=== PATIENT | female | born 1990 | race Caucasian/White ===

== ENCOUNTER → 2018-03-12 19:08 | Outpatient (CLI) | payer OTHER, SELFPAY ==
[2018-03-15 14:29] LABS: HPV Reflexed? NOT INDICATED
== END ==
PROVIDERS: Visit Provider Obstetrics & Gynecology
DX: Z12.4 Encounter for screening for malignant neoplasm of cervix (principal)
CPT/HCPCS: 88175; G0145

== ENCOUNTER → 2018-03-13 12:06 | Outpatient (CLI) | payer OTHER, SELFPAY ==
[2018-03-13 13:35] LABS: Cholesterol 155 mg/dL (200); Creatinine, Serum 0.65 mg/dL (0.55-1.02); EST Glomerular Filtration Rate 117 mL/min (>60); Est Glom Filt Rate - Afr Amer 142 mL/min (>60); Glucose 88 mg/dL (74-106); High Density Lipoprotein 40 mg/dL; Thyroid Stim Hormone (TSH) 1.37 uIU/mL (0.358-3.74); Triglycerides 127 mg/dL; Very Low Density Lipoprotein 25 mg/dL (5-40)
[2018-03-13 14:02] LABS: Free T3 3.7 pg/mL (2.18-3.98); T4 Free Direct 1.18 ng/dL (0.76-1.46)
== END ==
PROVIDERS: Family Provider Family Medicine; PCP Family Medicine; Visit Provider Obstetrics & Gynecology
DX: Z00.00 Encounter for general adult medical examination without abnormal findings (principal); N93.9 Abnormal uterine and vaginal bleeding, unspecified; E01.0 Iodine-deficiency related diffuse (endemic) goiter
CPT/HCPCS: 36415; 80061; 82565; 82947; 84439; 84443; 84481

== ENCOUNTER → 2018-03-14 08:23 | Outpatient (CLI) | payer OTHER, SELFPAY ==
--- NOTE | 2018-03-14 08:26 | US_ITS ---
STUDY: THYROID ULTRASOUND REASON FOR EXAM: Female, 27 years old. Thyromegaly TECHNIQUE: Ultrasound evaluation of the thyroid was performed with real-time and static torres-scale imaging. COMPARISON: None. FINDINGS: RIGHT LOBE: The right lobe of the thyroid gland measures 5.9 x 2.0 x 1.7 cm. There is a homogeneous echotexture. There are 2 separate colloid cysts, both measure 3 x 3 x 2 mm. LEFT LOBE: The left lobe of the thyroid gland measures 5.4 x 1.7 x 1.4 cm. There is a homogeneous echotexture. There are no demonstrated solid, cystic or complex lesions. ISTHMUS: The isthmus measures 2.0 mm. The regional lymph nodes are normal. US/Thyroid IMPRESSION: Borderline enlarged thyroid gland with 2 separate 3 mm colloid cysts noted in the right lobe. No evidence of hyperemia or solid lesion Electronically Signed: Hank Schmitz MD at 8:38 EDT , Service support ,
== END ==
PROVIDERS: Family Provider Family Medicine; PCP Family Medicine; Visit Provider Obstetrics & Gynecology
DX: E01.0 Iodine-deficiency related diffuse (endemic) goiter (principal); N93.9 Abnormal uterine and vaginal bleeding, unspecified
CPT/HCPCS: 76536

== ENCOUNTER → 2019-07-15 | Outpatient (CLI) | payer BC, SELFPAY ==
[2019-07-15 14:42] VITALS: BMI 34.9
[2019-07-15 19:44] LABS: Chlamydia Trachomatis by PCR Negative (Negative); Neisserai gonorrhoeae by PCR Negative (Negative); Probe Check PASS; Sample Adequacy Control PASS; Specimen Processing Control PASS
== END | disposition home or self-care (01) ==
LOC: LABSPEC 17:00
PROVIDERS: Family Provider Family Medicine; PCP Family Medicine; Referring Provider Nurse Practitioner Women's Health; Visit Provider Nurse Practitioner Women's Health
DX: N89.8 Other specified noninflammatory disorders of vagina (principal); Z11.3 Encounter for screening for infections with a predominantly sexual mode of transmission
CPT/HCPCS: 87070; 87205; 87491; 87591

== ENCOUNTER → 2019-07-30 08:36 | Outpatient (CLI) | payer BC, SELFPAY ==
[2019-07-15 14:42] VITALS: BMI 34.9
[2019-07-30 10:37] LABS: Anion Gap 9 (5-15); BUN 9 mg/dL (7-18); BUN/Creat Ratio 13.2 RATIO (10-20); Calcium,Total 8.8 mg/dL (8.5-10.1); Chloride 108 mmol/L (98-107); Creatinine, Serum 0.68 mg/dL (0.55-1.02); EST Glomerular Filtration Rate 110 mL/min (>60); Est Glom Filt Rate - Afr Amer 133 mL/min (>60); Glucose 103 mg/dL (74-106); Potassium 3.8 mmol/L (3.5-5.1); Sodium Level 141 mmol/L (136-145)
== END ==
PROVIDERS: Family Provider Family Medicine; PCP Family Medicine; Referring Provider Family Medicine; Visit Provider Nurse Practitioner Family
DX: Z00.00 Encounter for general adult medical examination without abnormal findings (principal)
CPT/HCPCS: 36415; 80048

== ENCOUNTER → 2019-12-19 10:52 | Outpatient (CLI) | payer SELFPAY ==
[2019-12-19 08:51] VITALS: BMI 34.9
[2019-12-19 11:56] LABS: T4 Free Direct 1.06 ng/dL (0.76-1.46); Thyroid Stim Hormone (TSH) 3.46 uIU/mL (0.358-3.74)
[2019-12-20 08:30] LABS: Thyroid Peroxidase AB < 9 IU/mL (0-34)
== END ==
PROVIDERS: PCP Family Medicine; Referring Provider Internal Medicine Endocrinology, Diabetes & Metabolism; Visit Provider Internal Medicine Endocrinology, Diabetes & Metabolism
DX: E04.9 Nontoxic goiter, unspecified (principal)
CPT/HCPCS: 84439; 84443; 86376

== ENCOUNTER → 2020-06-03 11:22 | Outpatient (CLI) | payer BC, SELFPAY ==
[2019-12-19 08:51] VITALS: BMI 34.9
[2020-06-03 14:58] LABS: Absolute Lymphocyte Count 1.49 X10^3/uL (0.83-4.51); Absolute Neutrophil Count 6.6 X10^3/uL (2.0-7.7); Basophil# 0.04 X10^3/uL; Basophil% 0.4 % (0-1); Eosinophil# 0.08 X10^3/uL; Eosinophils% 0.9 % (0-5); Hematocrit 39.3 % (37-47); Lymphocyte # 1.49 X10^3/ul (4.0); Lymphocyte % 16.7 % (19-41); Mean Corp Hgb Conc 33.1 g/dL (32-36); Mean Corpuscular Hgb 27.7 pg (27.0-32.0); Mean Corpuscular Volume 83.8 fL (81-99); Mean Platelet Vol. 11.2 fl (6.2-12.0); Monocyte# 0.71 X10^3/uL; NRBC Flagged by Analyzer 0 % (0-5); Neutrophil # 6.59 X10^3/uL (2.7-7.7); Neutrophil % 73.8 % (47-70); Platelet Count 312 K/mm3 (150-450); RBC Distribution Width CV 12.9 % (11.6-14.6); Red Blood Count 4.69 M/mm3 (4.2-5.4); White Blood Count 8.9 K/mm3 (4.4-11.0)
[2020-06-03 15:14] LABS: Vitamin B12 389 pg/mL (211-911); Vitamin D,25 Hydroxy 22.8 ng/mL
[2020-06-03 15:21] LABS: ALB/GLOB Ratio 0.9 RATIO (0.9-2.4); AST(SGOT) 12 U/L (15-37); Alanine Aminotransfer ALT/SGPT 17 U/L (13-56); Albumin, Serum 3.6 g/dL (3.2-5.0); Alkaline Phosphatase 55 U/L (45-117); Anion Gap 4 (5-15); BUN 9 mg/dL (7-18); BUN/Creat Ratio 13.1 RATIO (10-20); Calcium,Total 9.2 mg/dL (8.5-10.1); Chloride 105 mmol/L (98-107); Cholesterol 168 mg/dL (200); Creatinine, Serum 0.69 mg/dL (0.55-1.02); EST Glomerular Filtration Rate 108 mL/min (>60); Est Glom Filt Rate - Afr Amer 131 mL/min (>60); Free T3 3.1 pg/mL (2.18-3.98); Glucose 79 mg/dL (74-106); High Density Lipoprotein 54 mg/dL; Iron 66 ug/dL (50-170); Potassium 3.8 mmol/L (3.5-5.1); Protein, Total 7.6 g/dL (6.4-8.2); Sodium Level 136 mmol/L (136-145); T4 Free Direct 1.03 ng/dL (0.76-1.46); Thyroid Stim Hormone (TSH) 1.51 uIU/mL (0.358-3.74); Triglycerides 187 mg/dL; Very Low Density Lipoprotein 37 mg/dL (5-40)
== END ==
PROVIDERS: PCP Family Medicine; Visit Provider Family Medicine
DX: E55.9 Vitamin D deficiency, unspecified (principal); E53.8 Deficiency of other specified B group vitamins; E01.0 Iodine-deficiency related diffuse (endemic) goiter; E78.5 Hyperlipidemia, unspecified; D64.9 Anemia, unspecified; Z51.81 Encounter for therapeutic drug level monitoring
CPT/HCPCS: 36415; 80053; 80061; 82306; 82607; 83540; 84439; 84443; 84481; 85025

== ENCOUNTER → 2020-11-18 13:03 | Outpatient (CLI) | payer BC, SELFPAY ==
[2020-11-18 10:29] VITALS: BMI 32.5
[2020-11-22 10:59] LABS: HPV Reflexed? NOT INDICATED
== END ==
PROVIDERS: PCP Family Medicine; Visit Provider Obstetrics & Gynecology
DX: Z12.4 Encounter for screening for malignant neoplasm of cervix (principal)
CPT/HCPCS: 88175; G0145

== ENCOUNTER → 2021-02-04 12:20 | Outpatient (CLI) | payer BC, SELFPAY ==
[2020-11-18 10:29] VITALS: BMI 32.5
[2021-02-04 14:34] LABS: Absolute Lymphocyte Count 1.63 X10^3/uL (0.83-4.51); Absolute Neutrophil Count 4.8 X10^3/uL (2.0-7.7); Basophil# 0.03 X10^3/uL; Basophil% 0.4 % (0-1); Eosinophil# 0.11 X10^3/uL; Eosinophils% 1.5 % (0-5); Hematocrit 38.4 % (37-47); Hemoglobin 12.7 g/dL (12.0-15.0); Lymphocyte # 1.63 X10^3/ul (0.83-4.51); Lymphocyte % 22.5 % (19-41); Mean Corp Hgb Conc 33.1 g/dL (32-36); Mean Corpuscular Hgb 27.6 pg (27.0-32.0); Mean Corpuscular Volume 83.5 fL (81-99); Mean Platelet Vol. 10.7 fl (6.2-12.0); Monocyte# 0.62 X10^3/uL; Monocyte% 8.6 % (0-10); NRBC Flagged by Analyzer 0 % (0-5); Neutrophil # 4.83 X10^3/uL (2.7-7.7); Neutrophil % 66.7 % (47-70); Platelet Count 306 K/mm3 (150-450); RBC Distribution Width CV 12.4 % (11.6-14.6); RBC Distribution Width SD 37.7 fl (35.1-43.9); White Blood Count 7.2 K/mm3 (4.4-11.0)
[2021-02-04 14:50] LABS: Vitamin B12 372 pg/mL (211-911); Vitamin D,25 Hydroxy 21.8 ng/mL
[2021-02-04 14:57] LABS: ALB/GLOB Ratio 0.9 RATIO (0.9-2.4); AST(SGOT) 10 U/L (15-37); Alanine Aminotransfer ALT/SGPT 18 U/L (13-56); Albumin, Serum 3.5 g/dL (3.2-5.0); Alkaline Phosphatase 57 U/L (45-117); Anion Gap 6 (5-15); BUN 8 mg/dL (7-18); BUN/Creat Ratio 11.4 RATIO (10-20); Calcium,Total 8.8 mg/dL (8.5-10.1); Chloride 105 mmol/L (98-107); Cholesterol 171 mg/dL (200); EST Glomerular Filtration Rate 105 mL/min (>60); Est Glom Filt Rate - Afr Amer 128 mL/min (>60); Glucose 84 mg/dL (74-106); High Density Lipoprotein 68 mg/dL; Potassium 3.7 mmol/L (3.5-5.1); Protein, Total 7.5 g/dL (6.4-8.2); Sodium Level 137 mmol/L (136-145); Triglycerides 126 mg/dL; Very Low Density Lipoprotein 25 mg/dL (5-40)
== END ==
PROVIDERS: PCP Family Medicine; Referring Provider Family Medicine; Visit Provider Family Medicine
DX: Z00.00 Encounter for general adult medical examination without abnormal findings (principal); E55.9 Vitamin D deficiency, unspecified; E53.8 Deficiency of other specified B group vitamins; Z13.220 Encounter for screening for lipoid disorders
CPT/HCPCS: 36415; 80053; 80061; 82306; 82607; 85025

== ENCOUNTER → 2021-02-17 17:10 | Outpatient (CLI) | payer BC, SELFPAY ==
[2020-11-18 10:29] VITALS: BMI 32.5
[2021-02-17 17:46] LABS: D-Dimer Quantitative (DVT/PE) 0.81 FEU/ug/m (0.27-0.49)
== END ==
PROVIDERS: PCP Family Medicine; Visit Provider Family Medicine
DX: R07.9 Chest pain, unspecified (principal)
CPT/HCPCS: 85379

== ENCOUNTER 2021-02-17 18:51 | Emergency (ER) | payer BC, SELFPAY ==
[2020-11-18 10:29] VITALS: BMI 32.5
[2021-02-17 18:52] VITALS: BP 143/81; PULSE 82; PULSE 91; RESP 16; TEMP 35.7; O2SAT 98; BMI 32.1
--- NOTE | 2021-02-17 19:06 | EKG12_ITS ---
Test Reason : CP Blood Pressure : / mmHG Vent. Rate : 076 BPM Atrial Rate : 076 BPM P-R Int : 128 ms QRS Dur : 080 ms QT Int : 380 ms P-R-T Axes : 026 018 026 degrees QTc Int : 427 ms Normal sinus rhythm with sinus arrhythmia Normal ECG Confirmed by WILFRIDO PICKERING, LELIA ([id number]), slot editor TYLOR BANEGAS ([id number]) on 02/21/2021 10:54:38 A M Referred By: SU Confirmed By:MEY ANNA MD
--- NOTE | 2021-02-17 19:08 | EDS_ITS ---
HPI History of Present Illness Chief Complaint: Chest Pain Informant: patient Onset/Context/Timing Onset: Weeks Activity at onset: gradual Timing: Intermittent Quality: Positive for Aching Location: Substernal, Right Parasternal, Left Parasternal, Right Chest and Left Chest Current Severity: Mild Maximum Severity: Mild Worsened By: Nothing Relieved By: Nothing Associated Symptoms: Negative for Nausea, Vomiting and Diaphoresis Narrative Narrative: 22-year-old female no sniffing past medical history. No significant surgical history. Has had intermittent atypical nonexertional diffuse chest pain for the last 2 weeks. Nothing specifically makes it better or worse. No hemoptysis. She is never had DVT or PE. No recent travel surgery or immobi lization. No leg pain or swelling. No hemoptysis. She did have Covid months ago. She is also on control pills. No family history of clotting disorder. She was seen in urgent care. Had an elevated D-dimer and was sent to the emergency department. Prior Similar Symptoms: No Recent Illness/Hospitalization: No CVD Risk Factors: Positive for Family History 1' </=55; Negative for Hypertension, Diabetes, Hypercholesterolemia and Smoking PE Risk Factors: Negative for Recent Travel/Surgery, Recent Immobilization, Prior DVT or PE, Cancer and OCP + Smoking + >/=35 TAD Risk Factors: Negative for Marfan's Syndrome, Hypertension and Family History [facility] Medical History (Updated 02/17/21 @ 20:[address] Sachin Gonsalez MD) GERD (gastroesophageal reflux disease) Nodular goiter Home Medications norelgestromin 150 mcg-e.estradiol 35 mcg/24 hr weekly transderm patch See Rx Instructions .ROUTE .COMPLEX #3 patch 11/18/20 [Rx Last Taken Unknown] omeprazole magnesium 20 mg tablet,delayed release 40 mg PO DAILY tab 11/18/20 [History Last Taken Unknown] Allergy/AdvReac Type Severity Reaction Status Date / Time No Known Allergies Allergy Verified 11/18/20 10:30 Family History Grandfather Myocardial infarction Diabetes Mother Thyroid disorder Grandfather Esophageal cancer Grandmother Arthritis Lung cancer Surgical History Pilonidal cyst Social History Smoking Status: Never smoker alcohol intake: current details: social substance use type: does not use caffeine: Yes what type of physical activity do you participate in: none and walking seatbelt use: always do you feel safe at home: Yes additional social history: [employer] ROS ROS ED ROS Narrative Young female no recent illness. Complaint of atypical chest pain. Review of Systems ROS Unobtainable: Denies due to encephalopathy Constitutional Constitutional ED: Denies chills or fever(s) Eyes Eyes: Denies none or change in vision ENT ENT ED: Denies ear pain or sore throat Cardiovascular Cardiovascular: Reports chest pain; Denies as per HPI or palpitations Respiratory/Chest Respiratory/Chest: Denies cough or dyspnea Gastrointestinal Gastrointestinal: Denies abdominal pain, diarrhea, nausea or vomiting Genitourinary Genitourinary ED: Denies dysuria or hematuria Musculoskeletal Musculoskeletal: Denies myalgias Integumentary Denies rash Neurologic Neurologic: Denies headache(s) Psychiatric Psychiatric: Denies depression Endocrine Endocrinology: Denies polyuria Hematologic/Lymphatic Hematologic/Lymphatic: Denies easy bruising Allergic/Immunologic Allergic/Immunologic ED: Denies urticaria EXAM Physical Exam Narrative Exam Narrative: And female. The vital signs stable afebrile. No distress. Exam normal. Lungs clear to auscultation. Heart regular rate and rhythm. Moving all 4 extremities. Calves nontender without edema or cords. Otherwise exam normal. Const Vital Signs: 02/17/21 18:52 02/17/21 19:29 Temperature 96.2 F L Temperature Source Temporal Pulse Rate 91 Respiratory Rate 16 Blood Pressure 143/81 H Blood Pressure Mean 101 Pulse Ox 98 98 Oxygen Delivery Method Room Air Room Air HEENT Reports moist mucous membranes normocephalic and atraumatic; Negative for trauma or tenderness Eyes PERRL and EOMs intact bilaterally Neck no lymphadenopathy, supple and no JVD General: Negative for tenderness Chest Wall inspection of chest normal and palpation of chest normal Chest: Negative for tenderness Resp normal respiratory effort and clear to auscultation bilaterally Effort and Inspection: respiratory distress Cardio regular rate, regular rhythm, S1 normal heart sound, S2 normal heart sound and no murmurs Rate: Negative for bradycardia or tachycardic GI normal to inspection, nondistended, normoactive bowel sounds, soft to palpation, non-tender, non-distended and no masses Back/Spine no CVA tenderness Extremity normal to inspection General Extremety ED: Negative for edema, pulses abnormal or tenderness General Extremity: Negative for edema or pulses abnormal Neuro oriented x3 Sensorium / Orientation: awake, alert, oriented to person, oriented to place and oriented to time Motor Exam: strength 5/5 throughout Psych mental status grossly normal Skin no rashes or lesions noted and no wounds Heart Score History: Slightly/Non-Suspicious ECG: Normal Age: </= 45 years Risk Factors: No Risk Factors Troponin: </= Normal Limit Score: 0 MDM MDM MDM Narrative Medical decision making narrative: 30-year-old female sent from urgent care with elevated D-dimer for atypical chest pain. Risk factors would include Covid and placed in observation status on MedSur for ongoing control pills. Clinically this does not appear to be cardiac chest pain. She has a normal EKG. Repeat exam patient is doing well at 8:35 PM. We went over all of her test results. She will be discharged home. Tylenol and/or Motrin for pain. Follow- up with your doctor if not improving. Lab Data Attestation: I reviewed the patient's lab results. Lab results narrative: CBC normal white count 7. Hemoglobin 12. EKG normal sinus rhythm rate of 76. No acute signs of MN or ischemia. No pericarditis. Unremarkable. Normal renal function. Portable chest x-ray 1 view interpreted by myself shows no acute abnormality. Labs: Laboratory Results - last 24 hr 02/17/21 02/17/21 02/17/21 19:17 19:17 19:17 WBC 7.7 RBC 4.49 Hgb 12.5 Hct 37.6 MCV 83.7 MCH 27.8 MCHC 33.2 RDW Std Deviation 37.8 RDW Coeff of Jennifer 12.5 Plt Count 311 MPV 10.0 Immature Gran % (Auto) 0.400 Neut % (Auto) 70.5 H Lymph % (Auto) 20.9 [place] % (Auto) 6.9 Eos % (Auto) 0.8 Baso % (Auto) 0.5 Absolute Neuts (auto) 5.4 Absolute Lymphs (auto) 1.61 Nucleated RBC % 0 D-Dimer Quant (PE/DVT) 0.85 H* Sodium 140 Potassium 3.6 Chloride 106 Carbon Dioxide 27.0 Anion Gap 7 BUN 9 Creatinine 0.79 Estim Creat Clear Calc 91.55 Est GFR (MDRD) Af Amer 111 Est GFR (MDRD) Non-Af 91 BUN/Creatinine Ratio 11.4 Glucose 107 H Calcium 8.9 Troponin I < 0.015 Serum , Qual 02/17/21 19:45 WBC RBC Hgb Hct MCV MCH MCHC RDW Std Deviation RDW Coeff of Jennifer Plt Count MPV Immature Gran % (Auto) Neut % (Auto) Lymph % (Auto) [place] % (Auto) Eos % (Auto) Baso % (Auto) Absolute Neuts (auto) Absolute Lymphs (auto) Nucleated RBC % D-Dimer Quant (PE/DVT) Sodium Potassium Chloride Carbon Dioxide Anion Gap BUN Creatinine Estim Creat Clear Calc Est GFR (MDRD) Af Amer Est GFR (MDRD) Non-Af BUN/Creatinine Ratio Glucose Calcium Troponin I Serum , Qual NEGATIVE Radiography Chest X-Ray - ED: 1 View, Read by ED Physician, Normal, Heart, Lungs, Mediastinum, Bony Structures and No Acute Disease Diagnostic Testing: Radiology Impression Chest CTA 02/17/21 19:20 IMPRESSION: Suboptimal timing of contrast bolus. Despite limitations: No acute abnormalities. Specifically, no evidence of acute pulmonary emboli to the segmental level. Electronically Signed: Albert Tan MD at 20:24 EDT Tel , Service support , Rhythm Strip Rhythm Strip: Sinus Rhythm Rate: 76 Ectopy: None EKG Initial EKG: Attestation: I personally reviewed and interpreted this EKG as follows: Interpretation: Sinus Rhythm and No Acute Injury Pattern Comments: Normal sinus rhythm rate of 76 no acute signs of MN nor ischemia. Prior EKG tracings: not available for review Prior: No Prior Discharge Plan Triage Chief Complaint: Chest Pain ED Provider: Sachin Gonsalez Dx/Rx/DC Orders Clinical Impression: Chest pain of unknown etiology Instructions: ED Chest Pain, Uncertain Cause Prescriptions: No Action omeprazole magnesium [Prilosec OTC] 20 mg tablet,delayed release (DR/EC) 40 mg PO DAILY RF: 0 Xulane 150-35 mcg/24 hr patch weekly See Rx Instructions .ROUTE .COMPLEX Qty: 3 RF: 12 Primary Care Provider: Monica Jones Referrals: Monica Jones DO [Primary Care Provider] - 1 Week if not improving Activity Restrictions/Additional Instructions: Your work-up today was unremarkable. Tylenol and/or Motrin for pain. Follow-up with your doctor if not improving. Return if feeling a lot worse. Disposition Disposition: Home, self care
--- NOTE | 2021-02-17 19:20 | CT_ITS ---
INDICATION: Acute chest pain and abnormal outpatient D-dimer EXAMINATION: CTA Chest WO/W Contrast Injection TECHNIQUE: Helically acquired images were obtained of the chest following administration of IV contrast. A radiation dose optimization technique was used for this scan. 3D postprocessing images including MIPS were reviewed. IV Contrast dosage and agent: IV 100mL [id number] COMPARISON: None. FINDINGS: Lungs: Unremarkable Mediastinum: The cardiomediastinal silhouette is not enlarged. No mediastinal, hilar or axillary adenopathy. The thoracic aorta is unremarkable. No obvious filling defect seen within the visualized pulmonary arteries. Pleura: Unremarkable Bones/Soft tissues: No suspicious osseous or soft tissue lesions Upper abdomen: No visualized abnormalities in the upper abdomen. CT/CTA Chest W/WO Contrast IMPRESSION: Suboptimal timing of contrast bolus. Despite limitations: No acute abnormalities. Specifically, no evidence of acute pulmonary emboli to the segmental level. Electronically Signed: Albert Tan MD at 20:24 EDT Tel , Service support ,
[2021-02-17 19:23] LABS: Absolute Lymphocyte Count 1.61 X10^3/uL (0.83-4.51); Absolute Neutrophil Count 5.4 X10^3/uL (2.0-7.7); Basophil# 0.04 X10^3/uL; Basophil% 0.5 % (0-1); Eosinophil# 0.06 X10^3/uL; Eosinophils% 0.8 % (0-5); Hematocrit 37.6 % (37-47); Hemoglobin 12.5 g/dL (12.0-15.0); Lymphocyte # 1.61 X10^3/ul (0.83-4.51); Lymphocyte % 20.9 % (19-41); Mean Corp Hgb Conc 33.2 g/dL (32-36); Mean Corpuscular Hgb 27.8 pg (27.0-32.0); Mean Corpuscular Volume 83.7 fL (81-99); Monocyte# 0.53 X10^3/uL; Monocyte% 6.9 % (0-10); NRBC Flagged by Analyzer 0 % (0-5); Neutrophil # 5.43 X10^3/uL (2.7-7.7); Neutrophil % 70.5 % (47-70); Platelet Count 311 K/mm3 (150-450); RBC Distribution Width CV 12.5 % (11.6-14.6); RBC Distribution Width SD 37.8 fl (35.1-43.9); Red Blood Count 4.49 M/mm3 (4.2-5.4); White Blood Count 7.7 K/mm3 (4.4-11.0)
[2021-02-17 19:29] VITALS: O2SAT 98
--- NOTE | 2021-02-17 19:30 | RAD_ITS ---
STUDY: X-RAY CHEST REASON FOR EXAM: Female, 30 years old. Chest pain. TECHNIQUE: Single AP portable view of the chest. COMPARISON: 03/04/2012. FINDINGS: The lungs are clear and expanded. There is no demonstrated pleural abnormality. Normal size heart. Normal mediastinum and colt. Normal visualized pulmonary arteries. Normal visualized aortic arch and descending thoracic aorta. Normal visualized thoracic spine. Normal visualized ribs, clavicles, and shoulders. There is no demonstrated abnormality of the visualized soft tissue structures of the upper abdomen. RAD/Chest 1 View (Portable) IMPRESSION: No acute cardiopulmonary disease or interval change. Electronically Signed: Kody Kruse DO at 20:50 EDT Tel [phone], Service support ,
[2021-02-17 19:34] LABS: D-Dimer Quantitative (DVT/PE) 0.85 FEU/ug/m (0.27-0.49)
[2021-02-17 19:40] LABS: Anion Gap 7 (5-15); BUN 9 mg/dL (7-18); BUN/Creat Ratio 11.4 RATIO (10-20); Calcium,Total 8.9 mg/dL (8.5-10.1); Chloride 106 mmol/L (98-107); Creatinine, Serum 0.79 mg/dL (0.55-1.02); EST Glomerular Filtration Rate 91 mL/min (>60); Est Glom Filt Rate - Afr Amer 111 mL/min (>60); Estimated Creatinine Clearance 91.55 ml/min; Glucose 107 mg/dL (74-106); Potassium 3.6 mmol/L (3.5-5.1); Sodium Level 140 mmol/L (136-145)
[2021-02-17 20:12] LABS: Internal QC Validated? YES +Cl - CLEAR BKGD
[2021-02-17 20:13] LABS: Pregnancy, Serum, hCG Quali. NEGATIVE Negative
[2021-02-17 20:45] VITALS: BP 106/66; PULSE 76; RESP 16; O2SAT 98
== END 2021-02-17 20:46 | disposition home or self-care (01) ==
PROVIDERS: Emergency Provider Emergency Medicine; PCP Family Medicine
DX: R07.9 Chest pain, unspecified (principal)
CPT/HCPCS: 71045; 71275; 80048; 84484; 84703; 85025; 85379; 93005; 99284; Q9967; A4216

== ENCOUNTER → 2022-07-14 | Outpatient (CLI) | payer BC, SELFPAY ==
[2022-07-14 17:44] LABS: Absolute Lymphocyte Count 1.66 X10^3/uL (0.83-4.51); Absolute Neutrophil Count 5.1 X10^3/uL (2.0-7.7); Basophil# 0.05 X10^3/uL; Basophil% 0.7 % (0-1); Eosinophil# 0.07 X10^3/uL; Eosinophils% 0.9 % (0-5); Hematocrit 37.2 % (37-47); Hemoglobin 12.5 g/dL (12.0-15.0); Lymphocyte # 1.66 X10^3/ul (0.83-4.51); Mean Corp Hgb Conc 33.6 g/dL (32-36); Mean Corpuscular Hgb 28.9 pg (27.0-32.0); Mean Corpuscular Volume 86.1 fL (81-99); Mean Platelet Vol. 10.9 fl (6.2-12.0); Monocyte# 0.66 X10^3/uL; Monocyte% 8.8 % (0-10); NRBC Flagged by Analyzer 0 % (0-5); Neutrophil # 5.07 X10^3/uL (2.7-7.7); Neutrophil % 67.3 % (47-70); Platelet Count 264 K/mm3 (150-450); RBC Distribution Width CV 12.2 % (11.6-14.6); RBC Distribution Width SD 38.5 fl (35.1-43.9); Red Blood Count 4.32 M/mm3 (4.2-5.4); White Blood Count 7.5 K/mm3 (4.4-11.0)
[2022-07-14 18:02] LABS: Vitamin D,25 Hydroxy 21.9 ng/mL
[2022-07-14 18:18] LABS: AST(SGOT) 14 U/L (15-37); Alanine Aminotransfer ALT/SGPT 19 U/L (13-56); Albumin, Serum 3.6 g/dL (3.2-5.0); Alkaline Phosphatase 47 U/L (45-117); Anion Gap 8 (5-15); BUN 7 mg/dL (7-18); BUN/Creat Ratio 10.8 RATIO (10-20); Calcium,Total 9.1 mg/dL (8.5-10.1); Chloride 103 mmol/L (98-107); Cholesterol 172 mg/dL (200); Creatinine, Serum 0.65 mg/dL (0.55-1.02); EST Glomerular Filtration Rate 114 mL/min (>60); Est Glom Filt Rate - Afr Amer 138 mL/min (>60); Globulin 3.7 g/dL (2.2-4.2); Glucose 77 mg/dL (74-106); High Density Lipoprotein 68 mg/dL; Potassium 3.4 mmol/L (3.5-5.1); Protein, Total 7.3 g/dL (6.4-8.2); Sodium Level 138 mmol/L (136-145); Thyroid Stim Hormone (TSH) 1.14 uIU/mL (0.358-3.74); Triglycerides 110 mg/dL; Very Low Density Lipoprotein 22 mg/dL (5-40)
== END | disposition home or self-care (01) ==
LOC: BFHLAB 14:23
PROVIDERS: PCP Family Medicine; Visit Provider Family Medicine
DX: Z00.00 Encounter for general adult medical examination without abnormal findings (principal); E55.9 Vitamin D deficiency, unspecified; R53.83 Other fatigue; E78.5 Hyperlipidemia, unspecified
CPT/HCPCS: 36415; 80053; 80061; 82306; 84443; 85025

== ENCOUNTER → 2023-07-23 | Outpatient (CLI) | payer BC, SELFPAY ==
[2023-07-23 12:51] LABS: Absolute Lymphocyte Count 1.67 X10^3/uL (0.83-4.51); Absolute Neutrophil Count 4.5 X10^3/uL (2.0-7.7); Basophil# 0.05 X10^3/uL; Basophil% 0.7 % (0-1); Eosinophil# 0.14 X10^3/uL; Eosinophils% 1.9 % (0-5); Hematocrit 37.5 % (37-47); Hemoglobin 12.3 g/dL (12.0-15.0); Lymphocyte # 1.67 X10^3/ul (0.83-4.51); Lymphocyte % 22.9 % (19-41); Mean Corp Hgb Conc 32.8 g/dL (32-36); Mean Corpuscular Hgb 28.8 pg (27.0-32.0); Mean Corpuscular Volume 87.8 fL (81-99); Mean Platelet Vol. 11.1 fl (6.2-12.0); Monocyte# 0.87 X10^3/uL; Monocyte% 11.9 % (0-10); NRBC Flagged by Analyzer 0 % (0-5); Neutrophil # 4.54 X10^3/uL (2.7-7.7); Neutrophil % 62.3 % (47-70); Platelet Count 270 K/mm3 (150-450); RBC Distribution Width CV 12.3 % (11.6-14.6); RBC Distribution Width SD 39.5 fl (35.1-43.9); Red Blood Count 4.27 M/mm3 (4.2-5.4); White Blood Count 7.3 K/mm3 (4.4-11.0)
[2023-07-23 13:05] LABS: Vitamin D,25 Hydroxy 28.2 ng/mL
[2023-07-23 13:12] LABS: ALB/GLOB Ratio 0.8 RATIO (0.9-2.4); AST(SGOT) 9 U/L (15-37); Alanine Aminotransfer ALT/SGPT 16 U/L (13-56); Albumin, Serum 3.3 g/dL (3.2-5.0); Alkaline Phosphatase 46 U/L (45-117); Anion Gap 5 (5-15); BUN 12 mg/dL (7-18); BUN/Creat Ratio 18.5 RATIO (10-20); Calcium,Total 8.5 mg/dL (8.5-10.1); Chloride 107 mmol/L (98-107); Cholesterol 162 mg/dL (200); Creatinine, Serum 0.65 mg/dL (0.55-1.02); EST Glomerular Filtration Rate 113 mL/min (>60); Est Glom Filt Rate - Afr Amer 137 mL/min (>60); Globulin 3.9 g/dL (2.2-4.2); Glucose 92 mg/dL (74-106); High Density Lipoprotein 69 mg/dL; Potassium 3.8 mmol/L (3.5-5.1); Protein, Total 7.2 g/dL (6.4-8.2); Sodium Level 138 mmol/L (136-145); Thyroid Stim Hormone (TSH) 1.66 uIU/mL (0.358-3.74); Triglycerides 104 mg/dL; Very Low Density Lipoprotein 21 mg/dL (5-40)
== END | disposition home or self-care (01) ==
LOC: BFHLAB 10:24
PROVIDERS: PCP Nurse Practitioner Family; Visit Provider Nurse Practitioner Family
DX: Z00.01 Encounter for general adult medical examination with abnormal findings (principal); E55.9 Vitamin D deficiency, unspecified
CPT/HCPCS: 36415; 80053; 80061; 82306; 84443; 85025

== ENCOUNTER → 2023-11-29 | Outpatient (CLI) | payer BC, SELFPAY ==
[2023-12-04 09:09] LABS: HPV APTIMA, High Risk Negative (Negative)
== END | disposition home or self-care (01) ==
PROVIDERS: PCP Nurse Practitioner Family; Visit Provider Obstetrics & Gynecology
DX: Z12.4 Encounter for screening for malignant neoplasm of cervix (principal)
CPT/HCPCS: 87624; 88175; G0145

== ENCOUNTER → 2024-03-18 | Outpatient (CLI) | payer BC, SELFPAY ==
[2024-03-18 15:17] LABS: Absolute Lymphocyte Count 1.45 X10^3/uL (0.83-4.51); Absolute Neutrophil Count 3.9 X10^3/uL (2.0-7.7); Basophil# 0.03 X10^3/uL; Basophil% 0.5 % (0-1); Eosinophils% 1.6 % (0-5); Hematocrit 38.4 % (37-47); Hemoglobin 12.7 g/dL (12.0-15.0); Lymphocyte # 1.45 X10^3/ul (0.83-4.51); Lymphocyte % 23.8 % (19-41); Mean Corp Hgb Conc 33.1 g/dL (32-36); Mean Corpuscular Volume 84.6 fL (81-99); Mean Platelet Vol. 10.9 fl (6.2-12.0); Monocyte# 0.61 X10^3/uL; NRBC Flagged by Analyzer 0 % (0-5); Neutrophil # 3.88 X10^3/uL (2.7-7.7); Neutrophil % 63.9 % (47-70); Platelet Count 280 K/mm3 (150-450); RBC Distribution Width CV 12.5 % (11.6-14.6); RBC Distribution Width SD 38.3 fl (35.1-43.9); Red Blood Count 4.54 M/mm3 (4.2-5.4); White Blood Count 6.1 K/mm3 (4.4-11.0)
[2024-03-18 15:33] LABS: Vitamin B12 288 pg/mL (211-911); Vitamin D,25 Hydroxy 48.4 ng/mL
[2024-03-18 15:41] LABS: ALB/GLOB Ratio 0.9 RATIO (0.9-2.4); AST(SGOT) 14 U/L (15-37); Alanine Aminotransfer ALT/SGPT 22 U/L (13-56); Albumin, Serum 3.6 g/dL (3.2-5.0); Alkaline Phosphatase 54 U/L (45-117); Anion Gap 8 (5-15); BUN 8 mg/dL (7-18); BUN/Creat Ratio 11.8 RATIO (10-20); Calcium,Total 9.2 mg/dL (8.5-10.1); Chloride 104 mmol/L (98-107); Creatinine, Serum 0.68 mg/dL (0.55-1.02); EST Glomerular Filtration Rate 107 mL/min (>60); Est Glom Filt Rate - Afr Amer 129 mL/min (>60); Ferritin 26 ng/mL (8-252); Glucose 82 mg/dL (74-106); Iron 69 ug/dL (50-170); Magnesium 2.2 mg/dL (1.6-2.6); Potassium 3.7 mmol/L (3.5-5.1); Protein, Total 7.6 g/dL (6.4-8.2); Sodium Level 137 mmol/L (136-145); Thyroid Stim Hormone (TSH) 1.38 uIU/mL (0.358-3.74)
== END | disposition home or self-care (01) ==
LOC: BFHLAB 13:09
PROVIDERS: PCP Nurse Practitioner Family; Referring Provider Nurse Practitioner Family; Visit Provider Nurse Practitioner Family
DX: Z00.01 Encounter for general adult medical examination with abnormal findings (principal); R53.83 Other fatigue; Z83.49 Family history of other endocrine, nutritional and metabolic diseases
CPT/HCPCS: 36415; 80053; 82306; 82607; 82728; 83540; 83735; 84439; 84443; 85025

== ENCOUNTER → 2024-07-22 | Outpatient (CLI) | payer BC, SELFPAY ==
[2024-07-22 12:14] LABS: Absolute Lymphocyte Count 1.13 X10^3/uL (0.83-4.51); Absolute Neutrophil Count 4.4 X10^3/uL (2.0-7.7); Basophil# 0.03 X10^3/uL; Basophil% 0.5 % (0-1); Eosinophil# 0.18 X10^3/uL; Eosinophils% 2.8 % (0-5); Hematocrit 38.8 % (37-47); Hemoglobin 12.8 g/dL (12.0-15.0); Lymphocyte # 1.13 X10^3/ul (0.83-4.51); Lymphocyte % 17.3 % (19-41); Mean Corpuscular Hgb 28.4 pg (27.0-32.0); Mean Corpuscular Volume 86.2 fL (81-99); Mean Platelet Vol. 10.8 fl (6.2-12.0); Monocyte# 0.75 X10^3/uL; Monocyte% 11.5 % (0-10); NRBC Flagged by Analyzer 0 % (0-5); Neutrophil # 4.42 X10^3/uL (2.7-7.7); Neutrophil % 67.4 % (47-70); Platelet Count 290 K/mm3 (150-450); RBC Distribution Width CV 12.4 % (11.6-14.6); RBC Distribution Width SD 38.7 fl (35.1-43.9); White Blood Count 6.5 K/mm3 (4.4-11.0)
[2024-07-22 12:27] LABS: Vitamin D,25 Hydroxy 20.1 ng/mL
[2024-07-22 12:37] LABS: ALB/GLOB Ratio 0.8 RATIO (0.9-2.4); AST(SGOT) 11 U/L (15-37); Alanine Aminotransfer ALT/SGPT 20 U/L (13-56); Albumin, Serum 3.4 g/dL (3.2-5.0); Alkaline Phosphatase 49 U/L (45-117); Anion Gap 6 (5-15); BUN 7 mg/dL (7-18); BUN/Creat Ratio 9.6 RATIO (10-20); Calcium,Total 9.4 mg/dL (8.5-10.1); Chloride 107 mmol/L (98-107); Cholesterol 184 mg/dL (200); Creatinine, Serum 0.73 mg/dL (0.55-1.02); EST Glomerular Filtration Rate 99 mL/min (>60); Est Glom Filt Rate - Afr Amer 119 mL/min (>60); Globulin 4.1 g/dL (2.2-4.2); Glucose 89 mg/dL (74-106); High Density Lipoprotein 79 mg/dL; Iron 75 ug/dL (50-170); Potassium 3.6 mmol/L (3.5-5.1); Protein, Total 7.5 g/dL (6.4-8.2); Sodium Level 138 mmol/L (136-145); Triglycerides 136 mg/dL; Very Low Density Lipoprotein 27 mg/dL (5-40)
== END | disposition home or self-care (01) ==
LOC: BFHLAB 09:13
PROVIDERS: PCP Nurse Practitioner Family; Referring Provider Nurse Practitioner Family; Visit Provider Nurse Practitioner Family
DX: Z00.01 Encounter for general adult medical examination with abnormal findings (principal); E55.9 Vitamin D deficiency, unspecified; E61.1 Iron deficiency
CPT/HCPCS: 36415; 80053; 80061; 82306; 83540; 85025

== ENCOUNTER → 2025-02-23 | Outpatient (CLI) | payer BC, SELFPAY ==
[2025-02-23 12:06] LABS: Absolute Neutrophil Count 4.1 X10^3/uL (2.0-7.7); Basophil# 0.04 X10^3/uL; Basophil% 0.6 % (0-1); Eosinophil# 0.16 X10^3/uL; Eosinophils% 2.4 % (0-5); Hematocrit 39.7 % (37-47); Hemoglobin 13.3 g/dL (12.0-15.0); Lymphocyte % 25.4 % (19-41); Mean Corp Hgb Conc 33.5 g/dL (32-36); Mean Corpuscular Volume 86.5 fL (81-99); Mean Platelet Vol. 11.1 fl (6.2-12.0); Monocyte# 0.71 X10^3/uL; Monocyte% 10.6 % (0-10); NRBC Flagged by Analyzer 0 % (0-5); Neutrophil # 4.07 X10^3/uL (2.7-7.7); Neutrophil % 60.7 % (47-70); Platelet Count 257 K/mm3 (150-450); RBC Distribution Width CV 12.2 % (11.6-14.6); RBC Distribution Width SD 38.9 fl (35.1-43.9); Red Blood Count 4.59 M/mm3 (4.2-5.4); White Blood Count 6.7 K/mm3 (4.4-11.0)
== END | disposition home or self-care (01) ==
PROVIDERS: Obstetrics & Gynecology; PCP Nurse Practitioner Family; Referring Provider Advanced Practice Midwife; Visit Provider Advanced Practice Midwife
DX: E01.0 Iodine-deficiency related diffuse (endemic) goiter (principal); Z86.39 Personal history of other endocrine, nutritional and metabolic disease
CPT/HCPCS: 36415; 84439; 84443; 85025

== ENCOUNTER → 2025-02-26 | Outpatient (CLI) | payer BC, SELFPAY ==
--- NOTE | 2025-02-26 13:10 | US_ITS ---
PROCEDURE: THYROID 02/26/2025 REASON FOR EXAM: HISTORY OF GOITER TECHNIQUE: THYROID COMPARISON: March 14, 2018. FINDINGS: Right thyroid lobe size: 5.8 cm x 1.6 cm 1.5 cm Left thyroid lobe size: 4.8 cm 1.4 cm x 1.2 cm Isthmus: 0.18 cm Background parenchymal echotexture is heterogeneous Nodules: . Lobe: Left, Location: Midpole, Size: 2 mm x 4 mm x 1 mm cm, Stability: Stable Composition: Cystic or mostly cystic (+0) Echogenicity: Anechoic (+0) Margin: Smooth (+0) Shape: Wider than tall (+0) Echogenic Foci: None (+0) TI-RADS: 1 US/Thyroid IMPRESSION: Heterogeneous echotexture of both lobes of the thyroid. Stable 4 mm x 2 mm x 1 mm cyst in the midpole of the left lobe of the thyroid g land. RECOMMENDATION: Based on most suspicious nodule. Nodule size = largest diameter Only evaluate nodule if =>5 mm. Growth > 20% in 2 dimensions = worsening. Follow up to 4 nodules. Recommend biopsy for no more than 2 nodules. Reading Location: [facility]
== END | disposition home or self-care (01) ==
PROVIDERS: PCP Nurse Practitioner Family; Referring Provider Obstetrics & Gynecology; Visit Provider Obstetrics & Gynecology
DX: E01.0 Iodine-deficiency related diffuse (endemic) goiter (principal); Z86.39 Personal history of other endocrine, nutritional and metabolic disease
CPT/HCPCS: 76536

== ENCOUNTER → 2025-07-27 | Outpatient (CLI) | payer BC, SELFPAY ==
[2025-07-27 15:01] LABS: Hematocrit 39.6 % (37-47); Hemoglobin 13.2 g/dL (12.0-15.0); Immature Granulocytes Count 0.010 X10^3/uL (0.0-0.0); Mean Corp Hgb Conc 33.3 g/dL (32-36); Mean Corpuscular Volume 85.5 fL (81-99); Mean Platelet Vol. 11.0 fl (6.2-12.0); NRBC Flagged by Analyzer 0 % (0-5); Platelet Count 289 K/mm3 (150-450); RBC Distribution Width CV 12.4 % (11.6-14.6); RBC Distribution Width SD 38.5 fl (35.1-43.9); Red Blood Count 4.63 M/mm3 (4.2-5.4); White Blood Count 5.9 K/mm3 (4.4-11.0)
[2025-07-27 15:40] LABS: AST(SGOT) 19 U/L (<=31); Alanine Aminotransfer ALT/SGPT 13 U/L (<=34); Albumin, Serum 4.0 g/dL (3.5-5.0); Alkaline Phosphatase 51 U/L (35-104); Anion Gap 11 (5-15); BUN 7 mg/dL (4-19); BUN/Creat Ratio 11.5 RATIO (10-20); Calcium,Total 9.2 mg/dL (7.6-11.0); Carbon Dioxide 23.5 mmol/L (21.0-32.0); Chloride 103 mmol/L (98-108); Cholesterol 191 mg/dL (<=200); Ferritin 51 ng/mL (22-378); Free T3 3.2 pg/mL (2.18-3.98); Globulin 3.0 g/dL (2.2-4.2); Glucose 79 mg/dL (70-99); Low Density Lipoprotein Calc. 105 mg/dL; Potassium 4.0 mmol/L (3.3-5.1); Triglycerides 83 mg/dL; Very Low Density Lipoprotein 17 mg/dL (5-40); Vitamin B12 356 pg/mL (180-914); Vitamin D,25 Hydroxy 27.5 ng/mL (30-100); cholesterol:hdl ratio screen 2.68
[2025-07-27 16:03] LABS: Iron 31 ug/dL (50-170)
--- OUTSIDE RECORDS SUMMARY | 2025-07-27 16:29 | XMS RPT_ITS | CCD ---
Author Organization [facility] Care Team Providers Care Quality Lab Technician Name Role Phone Dr. Monica Jones Referring Provider Dr. Shirley Gregg Attending Provider James, CELL LINER-C Denia Primary Care Provider James CELL LINER-C, Denia Primary Care Provider [phone] James CELL LINER-C, Denia Referring Provider [phone] Dr. Shirley Gregg MD Attending Provider Misty Murphy CNM Attending Provider Misty Murphy CNM Referring Provider [phone] Dr. Shirley Gregg MD Referring Provider James, Denia Primary Care Unavailable James, Denia Attending Unavailable James, Denia Referring Unavailable James, Denia Primary Care Unavailable Shirley Gregg Attending Unavailable Shirley Gregg Referring Unavailable James, Denia Primary Care Unavailable Misty Murphy Attending Unavailable Misty Murphy Referring Unavailable James, Denia Primary Care Unavailable Shirley Gregg Attending Unavailable James, Denia Referring Unavailable James, Denia Primary Care Unavailable James, Denia Attending Unavailable James, Denia Referring Unavailable Medications Current Medications Medication Drug Class(es) Dates Sig (Normalized) Sig (Original) cholecalciferol 0.01 mg oral capsule (5 sources) Vitamin D Start: 11-23-2022 take 1 capsule by mouth once daily Cholecalciferol (Vitamin D3) 10 mcg (400 unit) capsule Active 10 ug PO DAILY November 23, 2022 12:00am ferrous sulfate 325 mg oral tablet (3 sources) Start: 02-23-2025 take 1 tablet by mouth once daily Ferrous Sulfate 325 mg (65 mg iron) tablet Active 325 mg PO daily February 23, 2025 12:00am Norelgestromin-Ethin. Estradiol (1 source) Start: 11-29-2023 Norelgestromin-Ethin .Estradiol Active 1 PATCH TD Q7D 3 November 29, 2023 12:00am apply once weekly for 3 weeks of a 4-week cycle Norelgestromin-Ethin. Estradiol (Xulane) 150-35 mcg/24 hr patch weekly (1 source) Start: 02-27-2025 Norelgestromin-Ethin .Estradiol (Xulane) 150-35 mcg/24 hr patch weekly Active 1 NMA TD Q7D 3 February 27, 2025 1:59pm apply once weekly for 3 weeks of a 4-week cycle Completed/Discontinued Medications Medication Drug Class(es) Dates Sig (Normalized) Sig (Original) 168 hr ethinyl estradiol 0.19386 mg/hr / norelgestromin 0.25355 mg/hr transdermal system (20 sources) Progestin, Estrogen Start: 11-20-2023 End: 02-27-2025 Norelgestromin-Ethi n.Estradiol (Xulane) 150-35 mcg/24 hr patch weekly Discontinued 1 NMA TD Q7D 3 February 11, 2025 12:00am February 23, 2025 9:14am apply once weekly for 3 weeks of a 4-week cycle Start: 03-12-2018 End: 05-07-2019 Norelgestromin-Ethin.Estradi ol (Xulane) 150-35 mcg/24 hr patch weekly Discontinued 1 NMA TD Q7D 4 June 04, 2018 4:58pm May 07, 2019 4:14am Start: 03-12-2018 End: 11-20-2023 apply 1 dose transdermal route every week Norelgestromin-Ethin.Estradiol (Xulane) 150-35 mcg/24 hr patch weekly Discontinued 0 .ROUTE .COMPLEX 3 November 22, 2022 9:08am November 23, 2022 8:56am APPLY 1 PATCH TOPICALLY ONCE A WEEK metroNIDAZOLE 500 mg oral tablet (6 sources) Nitroimidazole Antimicrobial Start: 07-16-2019 End: 11-10-2019 take 1 tablet by mouth twice daily Metronidazole (Flagyl) 500 mg tablet Discontinued 500 mg PO TWICE A DAY 14 0 July 16, 2019 1:00am November 10, 2019 8:10am Norelgestromin-Ethi n.Estradiol 150-35 mcg/24 hr patch weekly (6 sources) Start: 02-10-2025 End: 02-11-2025 Norelgestromin-Eth in.Estradiol 150-35 mcg/24 hr patch weekly Discontinued 1 NMA TD Q7D 3 1 February 10, 2025 1:24pm February 11, 2025 4:04pm apply once weekly for 3 weeks of a 4-week cycle Start: 02-10-2025 End: 02-11-2025 Norelgestromin-Ethin.Estradi ol 150-35 mcg/24 hr patch weekly Discontinued 1 NMA TD Q7D 3 February 10, 2025 1:24pm February 11, 2025 4:04pm apply once weekly for 3 weeks of a 4-week cycle Start: 11-29-2023 End: 02-10-2025 Norelgestromin-Ethin.Estradi ol 150-35 mcg/24 hr patch weekly Discontinued 1 NMA TD Q7D 3 November 29, 2023 12:00am February 10, 2025 1:24pm apply once weekly for 3 weeks of a 4-week cycle Start: 11-29-2023 End: 02-10-2025 Norelgestromin-Ethin.Estradi ol 150-35 mcg/24 hr patch weekly Discontinued 1 NMA TD Q7D 3 November 29, 2023 12:00am February 10, 2025 1:24pm apply once weekly for 3 weeks of a 4-week cycle omeprazole 20 mg delayed release oral tablet (6 sources) Proton Pump Inhibitor Start: 11-18-2020 End: 11-23-2022 Omeprazole Magnesium (Prilosec Otc) 20 mg tablet,delayed release (DR/EC) Discontinued 40 mg PO DAILY November 18, 2020 12:00am November 23, 2022 8:35am Problems Problem Classification Problem Date Documented Da te Episodic/Chronic Nonmalignant breast conditions (7 sources) Pain of breast; Translations: [Mastodynia] Onset: 02-23-2025 02-23-2025 Episodic Comment on above: supportive care revi ewed Nonspecific chest pain (6 sources) Chest pain; Translations: [Chest pain, unspecified] 02-17-2021 Episodic Other female genital disorders (6 sources) Abnormal uterine bleeding; Translations: [Abnormal uterine and vaginal bleeding, unspecified] 03-12-2018 Chronic Other nutritional; endocrine; and metabolic disorders (1 source) Personal history of other endocrine, nutritional and metabolic disease; Translations: [Personal history of other endocrine, nutritional and metabolic disease] Onset: 02-23-2025 Episodic Thyroid disorders (19 sources) Goiter; Translations: [Iodine-deficiency related diffuse (endemic) goiter] Onset: 03-02-2025 03-12-2018 Chronic Results Test Name Value Interpretation Reference Range Facility Thyroidon 02-26-2025 Thyroid [facility] [address], [place] [id number] Thyroid MR#: [id number] Acct: [id number] Name: LANA TRAN Rep #: [id number] : 1990 F 34 From: Cristian owens MD PCP: LAURENT Vyas Status: REG CLI Study: Thyroid Date of Exam: 02/26/25 Exam# [id number] Ordering Dr: Shirley Gregg PROCEDURE: THYROID 02/26/2025 REASON FOR EXAM: HISTORY OF GOITER TECHNIQUE: THYROID COMPARISON: March 14, 2018. FINDINGS: Right thyroid lobe size: 5.8 cm x 1.6 cm 1.5 cm Left thyroid lobe size: 4.8 cm 1.4 cm x 1.2 cm Isthmus: 0.18 cm Background parenchymal echotexture is heterogeneous Nodules: . Lobe: Left, Location: Midpole, Size: 2 mm x 4 mm x 1 mm cm, Stability: Stable Composition: Cystic or mostly cystic (+0) Echogenicity: Anechoic (+0) Margin: Smooth (+0) Shape: Wider than tall (+0) Echogenic Foci: None (+0) TI-RADS: 1 US/Thyroid IMPRESSION: Heterogeneous echotexture of both lobes of the thyroid. Stable 4 mm x 2 mm x 1 mm cyst in the midpole of the left lobe of the thyroid gland. RECOMMENDATION: Based on most suspicious nodule. Nodule size = largest diameter Only evaluate nodule if =>5 mm. Growth > 20% in 2 dimensions = worsening. Follow up to 4 nodules. Recommend biopsy for no more than 2 nodules. Reading Location: [id number] CC: LAURENT Ramirez; Dr. Shirley Gregg MD Match Marker: Signed Normal [facility] Absolute lymphocyte countOrd ered By: Shirley Gregg on 02-23-2025 Lymphocytes Auto (Unsp spec) [#/Vol] 1.70 10*3/uL 0.83-4.51 [facility] Absolute neutrophil countOrd ered By: Shirley Gregg on 02-23-2025 Neutrophils (Bld) [#/Vol] 4.1 10*3/uL 2.0-7.7 [facility] Automated lymphocyte count a s percentage of total leukocytesOrdered By: Shirley Gregg on 02-23-2025 Lymphocytes/100 WBC Auto (Unsp spec) 25.4 % 19-41 [facility] Basophil percentageOrdered B y: Shirley Gregg on 02-23-2025 Basophils/100 WBC (Bld) 0.6 % 0-1 [facility] CBC W/Diff, Automatedon 02-02 Absolute Lymph 1.70 X10 3/uL Normal 0.83-4.51 [facility] Comment on above: Performed By: #### L 500.4050, L506.1000, L503.6150, L503.6550, L501.5200, L100.0100, L501.9520, L503.0105, L506.0400 #### [facility] [address] [place], [place], [id number] Absolute Neut 4.1 X10 3/uL Normal 2.0-7.7 [facility] Comment on above: Performed By: #### L 500.4050, L506.1000, L503.6150, L503.6550, L501.5200, L100.0100, L501.9520, L503.0105, L506.0400 #### [facility] [address] [place], [address] Basophils/100 WBC (Bld) 0.6 % Normal 0-1 [facility] Comment on above: Performed By: #### L 500.4050, L506.1000, L503.6150, L503.6550, L501.5200, L100.0100, L501.9520, L503.0105, L506.0400 #### [facility] [address] [place], [address] Eosinophils/100 WBC (Bld) 2.4 % Normal 0-5 [facility] Comment on above: Performed By: #### L 500.4050, L506.1000, L503.6150, L503.6550, L501.5200, L100.0100, L501.9520, L503.0105, L506.0400 #### [facility] [address] [place], [address] Erythrocyte distribution width (RBC) [Ratio] 12.2 % Normal 11.6-14.6 [facility] Comment on above: Performed By: #### L 500.4050, L506.1000, L503.6150, L503.6550, L501.5200, L100.0100, L501.9520, L503.0105, L506.0400 #### [facility] [address] [place], [address] Hematocrit (Bld) [Volume fraction] 39.7 % Normal 37-47 [facility] Comment on above: Performed By: #### L 500.4050, L506.1000, L503.6150, L503.6550, L501.5200, L100.0100, L501.9520, L503.0105, L506.0400 #### [facility] [address] [place], [address] Hemoglobin (Bld) [Mass/Vol] 13.3 g/dL Normal 12.0-15.0 [facility] Comment on above: Performed By: #### L 500.4050, L506.1000, L503.6150, L503.6550, L501.5200, L100.0100, L501.9520, L503.0105, L506.0400 #### [facility] [address] [place], [address] IG% 0.300 Normal 0.0-0.9 [facility] Comment on above: Result Comment: IG% - Immature Granulocytes (promyelocytes, myelocytes and metamyelocytes) > 1% indicates that a LEFT SHIFT is Present. Performed By: #### L 500.4050, L506.1000, L503.6150, L503.6550, L501.5200, L100.0100, L501.9520, L503.0105, L506.0400 #### [facility] [address] [place], [address] Lymphocytes/100 WBC (Bld) 25.4 % Normal 19-41 [facility] Comment on above: Performed By: #### L 500.4050, L506.1000, L503.6150, L503.6550, L501.5200, L100.0100, L501.9520, L503.0105, L506.0400 #### [facility] [address] [place], [address] MCH (RBC) [Entitic mass] 29.0 pg Normal 27.0-32.0 [facility] Comment on above: Performed By: #### L 500.4050, L506.1000, L503.6150, L503.6550, L501.5200, L100.0100, L501.9520, L503.0105, L506.0400 #### [facility] [address] [place], [address] MCHC (RBC) [Mass/Vol] 33.5 g/dL Normal 32-36 [facility] Comment on above: Performed By: #### L 500.4050, L506.1000, L503.6150, L503.6550, L501.5200, L100.0100, L501.9520, L503.0105, L506.0400 #### [facility] [address] [place], [address] MCV (RBC) [Entitic vol] 86.5 fL Normal 81-99 [facility] Comment on above: Performed By: #### L 500.4050, L506.1000, L503.6150, L503.6550, L501.5200, L100.0100, L501.9520, L503.0105, L506.0400 #### [facility] [address] [facility] [place], [address] Monocytes/100 WBC (Bld) 10.6 % High 0-10 [facility] Comment on above: Performed By: #### L 500.4050, L506.1000, L503.6150, L503.6550, L501.5200, L100.0100, L501.9520, L503.0105, L506.0400 #### [facility] [address] [facility] [place], [address] Neutrophils/100 WBC (Bld) 60.7 % Normal 47-70 [facility] Comment on above: Performed By: #### L 500.4050, L506.1000, L503.6150, L503.6550, L501.5200, L100.0100, L501.9520, L503.0105, L506.0400 #### [facility] [address] [facility] [place], [address] Nucleated RBC (Bld) [#/Vol] 0 10*3/uL Normal 0-5 [facility] Comment on above: Performed By: #### L 500.4050, L506.1000, L503.6150, L503.6550, L501.5200, L100.0100, L501.9520, L503.0105, L506.0400 #### [facility] [address] [place], [address] Platelet mean volume (Bld) [Entitic vol] 11.1 fL Normal 6.2-12.0 [facility] Comment on above: Performed By: #### L 500.4050, L506.1000, L503.6150, L503.6550, L501.5200, L100.0100, L501.9520, L503.0105, L506.0400 #### [facility] [address] [place], [address] Platelets (Bld) [#/Vol] 257 10*3/uL Normal 150-450 [facility] Comment on above: Performed By: #### L 500.4050, L506.1000, L503.6150, L503.6550, L501.5200, L100.0100, L501.9520, L503.0105, L506.0400 #### [facility] [address] [place], [address] RBC (Bld) [#/Vol] 4.59 10*6/uL Normal 4.2-5.4 [facility] Comment on above: Performed By: #### L 500.4050, L506.1000, L503.6150, L503.6550, L501.5200, L100.0100, L501.9520, L503.0105, L506.0400 #### [facility] [address] [place], [address] RDW SD 38.9 fl Normal 35.1-43.9 [facility] Comment on above: Performed By: #### L 500.4050, L506.1000, L503.6150, L503.6550, L501.5200, L100.0100, L501.9520, L503.0105, L506.0400 #### [facility] [address] [place], [address] WBC (Bld) [#/Vol] 6.7 10*3/uL Normal 4.4-11.0 [facility] Comment on above: Performed By: #### L 500.4050, L506.1000, L503.6150, L503.6550, L501.5200, L100.0100, L501.9520, L503.0105, L506.0400 #### [facility] [address] [place], [address] Eosinophil percentageOrdered By: Shirley Gregg on 02-23-2025 Eosinophils/100 WBC (Bld) 2.4 % 0-5 [facility] Erythrocyte distribution wid th ratioOrdered By: Shirley Gregg on 02-23-2025 Erythrocyte distribution width (RBC) [Ratio] 12.2 % 11.6-14.6 [facility] Erythrocyte distribution wid th standard deviationOrdered By: Shirley Gregg on 02-23-2025 Erythrocyte distribution width (RBC) [Ratio] 38.9 fl 35.1-43.9 [facility] Hematocrit Auto (Bld) [Volum e fraction]Ordered By: Shirley Gregg on 02-23-2025 Hematocrit (Bld) [Volume fraction] 39.7 % 37-47 [facility] Hemoglobin measurementOrdere d By: Shirley Gregg on 02-23-2025 Hemoglobin (Bld) [Mass/Vol] 13.3 g/dL 12.0-15.0 [facility] Immature granulocytes/100 WB C Auto (Bld)Ordered By: Shirley Gregg on 02-23-2025 Immature granulocytes/100 WBC (Bld) 0.300 % 0.0-0.9 [facility] Comment on above: IG% - Immature Granu locytes (promyelocytes, myelocytes and metamyelocytes) > 1% indicates that a LEFT SHIFT is Present. MCV (mean corpuscular volume ) determinationOrdered By: Shirley Gregg on 02-23-2025 MCV (RBC) [Entitic vol] 86.5 fL 81-99 [facility] Mean corpuscular hemoglobin (MCH) determinationOrdered By: Shirley Gregg on 02-23-2025 MCH (RBC) [Entitic mass] 29.0 pg 27.0-32.0 [facility] Mean corpuscular hemoglobin concentration (MCHC) determinationOrdered By: Shirley Gregg on 02-23-2025 MCHC (RBC) [Mass/Vol] 33.5 g/dL 32-36 [facility] Mean platelet volume determi nationOrdered By: Shirley Gregg on 02-23-2025 Platelet mean volume (Bld) [Entitic vol] 11.1 fL 6.2-12.0 [facility] Monocyte percentageOrdered B y: Shirley Gregg on 02-23-2025 Monocytes/100 WBC (Bld) 10.6 % High 0-10 [facility] Neutrophil percentageOrdered By: Shirley Grgeg on 02-23-2025 Neutrophils/100 WBC (Bld) 60.7 % 47-70 [facility] Nucleated red blood cell per centageOrdered By: Shirley Gregg on 02-23-2025 Nucleated RBC/100 WBC (Bld) [Ratio] 0 % 0-5 [facility] Medicine Worker Office Visit Reporton 02-23-2025 Medicine Worker Office Visit Report [facility] [address], [address] [place] [address] OFFICE VISIT Date of Service: 02/23/25 MR#: [id number] Acct: [id number] Name: LANA TRAN Rep #: [id number] : 1990 Provider: Dr. 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 estradiol) ferrous sulfate 325 mg (65 mg 325 mg PO QDAY 02/23/25 02/23/25 H istory iron) tablet Is last menstrual period known: Yes Last Menstrual Period: 02/02/25 Post menopausal: No Patient : No : No PFSH Medical History GERD (gastroesophageal reflux disease) Nodular goiter Surgical History S/P cholecystectomy Pilonidal cyst Family History Grandfather Myocardial infarction Diabetes Mother Thyroid disorder Grandfather Esophageal cancer Grandmother Arthritis Lung cancer Social History Smoking Status: Never smoker alcohol intake: current details: social substance use type: does not use caffeine: Yes what type of physical activity do you participate in: walking frequency: 1-2 times per week duration: 45-60 minutes/day seatbelt use: always do you feel safe at home: Yes 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 CO RIGHT INNER BRESAT pain intermittently for the last few months no lumps may be chest wall, unsure. no family history no lumps or skin changes no discharge. Last PAP: 11/29/2023 - normal History of abnormal PAP: Last mammogram: not due History of abnormal mammogram: Colon cancer screening: not due Other preventative health care screenings: PCP [facility] Female Reproductive History Last Menstrual Period: 02/02/25 Cycle Length: 21-35 Bleeding Duration: 5 Questions: metorrhagia: No, sexually active: Yes, dyspareunia: No and PCB: No Menopausal Symptoms: No hot flashes, No night sweats, No weight change, No mood changes, No difficulty concentrating, No sleep problems and No change in libido ROS Const Constitutional: Reports as per HPI; Denies fatigue, increased appetite, poor appetite, night sweats, weight gain or weight loss Cardio Card: Denies chest pain Resp Resp: Denies cough or dyspnea GI GI: Reports as per HPI; Denies abdominal pain, bloating, constipation, nausea or vomiting : Reports as per HPI, vaginal discharge and other; Denies difficulty voiding, dysuria, hematuria, hot flashes, nipple discharge, pelvic pain, prolapse symptoms, urinary frequency, urinary incontinence, urinary urgency, vaginal dryness, vaginal odor or vaginal pruritus Skin Skin/Breast: Reports breast pain; Denies changing lesions, breast mass, breast skin changes or nipple discharge Psych Psych: Denies anxiety, change in libido, depression or difficulty concentrating Exam Const General: cooperative, healthy appearing, comfortable, no acute distress, well developed and well groomed [facility] Head: normal to inspection and normocephalic Ears: hearing grossly normal bilaterally and external ears normal Nose: external nose normal Face and sinus: normal facial exam Neck Neck: normal visual inspection, full ROM and no lymphadenopathy Thyroid: thyroid normal Chest Chest palpation inspection: normal inspection of the chest Breast inspection: normal inspection of the breasts and normal inspection of the axillae Breast palpation: normal palpation of the breasts, normal palpation of the axillae and no axillary lymphadenopathy Resp Effort Inspection: normal respiratory effort GI Inspection: normal to inspection and non-distended Palpation: soft, no hepatosplenomegaly and no guarding General: bladder normal to palpation External Female Exam: normal external lyric (more content not included)... Normal [facility] Platelet countOrdered By: Manasa Gregg on 02-23-2025 Platelets (Bld) [#/Vol] 257 10*3/uL 150-450 [facility] RBC Auto (Bld) [#/Vol]Ordere d By: Shirley Gregg on 02-23-2025 RBC (Bld) [#/Vol] 4.59 10*6/uL 4.2-5.4 [facility] T4 Free Directon 02-23-2025 T4 FREE DIRECT 1.10 ng/dL Normal 0.76-1.46 [facility] Comment on above: Performed By: #### L 500.4050, L506.1000, L503.6150, L503.6550, L501.5200, L100.0100, L501.9520, L503.0105, L506.0400 #### [facility] [address] [place], [place], [id number] T4 freeOrdered By: Shirley mcclelland on 02-23-2025 Free T4 [Mass/Vol] 1.10 ng/dL 0.76-1.46 [facility] TSH DL <= 0.005 mIU/L QnOrde red By: Shirley Gregg on 02-23-2025 TSH Qn 1.990 uIU/mL 0.300-4.200 [facility] Thyroid Stim Hormone (TSH)on 02-23-2025 TSH 1.990 uIU/mL Normal 0.300-4.200 [facility] Comment on above: Performed By: #### L 500.4050, L506.1000, L503.6150, L503.6550, L501.5200, L100.0100, L501.9520, L503.0105, L506.0400 #### [facility] [address] [place], [place], [id number] White blood cell (WBC) count Ordered By: Shirley Gregg on 02-23-2025 WBC (Bld) [#/Vol] 6.7 10*3/uL 4.4-11.0 [facility] CBC W/Diff, Automatedon 11- Absolute Lymph 1.13 X10 3/uL Normal 0.83-4.51 [facility] Comment on above: Performed By: #### L 506.1000, L500.4100, L503.6150, L500.4050, L100.0100 #### [facility] [address] [place], [address] Absolute Neut 4.4 X10 3/uL Normal 2.0-7.7 [facility] Comment on above: Performed By: #### L 506.1000, L500.4100, L503.6150, L500.4050, L100.0100 #### [facility] [address] [place], [address] Basophils/100 WBC (Bld) 0.5 % Normal 0-1 [facility] Comment on above: Performed By: #### L 506.1000, L500.4100, L503.6150, L500.4050, L100.0100 #### [facility] [address] [place], [address] Eosinophils/100 WBC (Bld) 2.8 % Normal 0-5 [facility] Comment on above: Performed By: #### L 506.1000, L500.4100, L503.6150, L500.4050, L100.0100 #### [facility] [address] [place], [address] Erythrocyte distribution width (RBC) [Ratio] 12.4 % Normal 11.6-14.6 [facility] Comment on above: Performed By: #### L 506.1000, L500.4100, L503.6150, L500.4050, L100.0100 #### [facility] [address] [place], [address] Hematocrit (Bld) [Volume fraction] 38.8 % Normal 37-47 [facility] Comment on above: Performed By: #### L 506.1000, L500.4100, L503.6150, L500.4050, L100.0100 #### [facility] [address] [place], [address] Hemoglobin (Bld) [Mass/Vol] 12.8 g/dL Normal 12.0-15.0 [facility] Comment on above: Performed By: #### L 506.1000, L500.4100, L503.6150, L500.4050, L100.0100 #### [facility] [address] [place], [address] IG% 0.500 Normal 0.0-0.9 [facility] Comment on above: Result Comment: IG% - Immature Granulocytes (promyelocytes, myelocytes and metamyelocytes) > 1% indicates that a LEFT SHIFT is Present. Performed By: #### L 506.1000, L500.4100, L503.6150, L500.4050, L100.0100 #### [facility] [address] [place], [address] Lymphocytes/100 WBC (Bld) 17.3 % Low 19-41 [facility] Comment on above: Performed By: #### L 506.1000, L500.4100, L503.6150, L500.4050, L100.0100 #### [facility] [address] [place], [address] MCH (RBC) [Entitic mass] 28.4 pg Normal 27.0-32.0 [facility] Comment on above: Performed By: #### L 506.1000, L500.4100, L503.6150, L500.4050, L100.0100 #### [facility] [address] [place], [address] MCHC (RBC) [Mass/Vol] 33.0 g/dL Normal 32-36 [facility] Comment on above: Performed By: #### L 506.1000, L500.4100, L503.6150, L500.4050, L100.0100 #### [facility] [address] [place], [address] MCV (RBC) [Entitic vol] 86.2 fL Normal 81-99 [facility] Comment on above: Performed By: #### L 506.1000, L500.4100, L503.6150, L500.4050, L100.0100 #### [facility] [address] [place], [address] Monocytes/100 WBC (Bld) 11.5 % High 0-10 [facility] Comment on above: Performed By: #### L 506.1000, L500.4100, L503.6150, L500.4050, L100.0100 #### [facility] [address] [place], [address] Neutrophils/100 WBC (Bld) 67.4 % Normal 47-70 [facility] Comment on above: Performed By: #### L 506.1000, L500.4100, L503.6150, L500.4050, L100.0100 #### [facility] [address] [place], [address] Nucleated RBC (Bld) [#/Vol] 0 10*3/uL Normal 0-5 [facility] Comment on above: Performed By: #### L 506.1000, L500.4100, L503.6150, L500.4050, L100.0100 #### [facility] [address] [place], [address] Platelet mean volume (Bld) [Entitic vol] 10.8 fL Normal 6.2-12.0 [facility] Comment on above: Performed By: #### L 506.1000, L500.4100, L503.6150, L500.4050, L100.0100 #### [facility] [address] [place], [address] Platelets (Bld) [#/Vol] 290 10*3/uL Normal 150-450 [facility] Comment on above: Performed By: #### L 506.1000, L500.4100, L503.6150, L500.4050, L100.0100 #### [facility] [address] [place], [address] RBC (Bld) [#/Vol] 4.50 10*6/uL Normal 4.2-5.4 [facility] Comment on above: Performed By: #### L 506.1000, L500.4100, L503.6150, L500.4050, L100.0100 #### [facility] [address] [place], [address] RDW SD 38.7 fl Normal 35.1-43.9 [facility] Comment on above: Performed By: #### L 506.1000, L500.4100, L503.6150, L500.4050, L100.0100 #### [facility] [address] [place], [address] WBC (Bld) [#/Vol] 6.5 10*3/uL Normal 4.4-11.0 [facility] Comment on above: Performed By: #### L 506.1000, L500.4100, L503.6150, L500.4050, L100.0100 #### [facility] [address] [place], [address] Comprehensive Metabolic Prof [facility] 07-22-2024 Albumin [Mass/Vol] 3.4 g/dL Normal 3.2-5.0 [facility] Comment on above: Performed By: #### L 500.4050, L506.1000, L503.6150, L503.6550, L501.5200, L100.0100, L501.9520, L503.0105, L506.0400 #### [facility] [address] [place], [address] Albumin/Globulin [Mass ratio] 0.8 {ratio} Low 0.9-2.4 [facility] Comment on above: Performed By: #### L 500.4050, L506.1000, L503.6150, L503.6550, L501.5200, L100.0100, L501.9520, L503.0105, L506.0400 #### [facility] [address] [place], [address] ALK P 49 U/L Normal 45-117 [facility] Comment on above: Performed By: #### L 500.4050, L506.1000, L503.6150, L503.6550, L501.5200, L100.0100, L501.9520, L503.0105, L506.0400 #### [facility] [address] [place], [address] ALT [Catalytic activity/Vol] 20 U/L Normal 13-56 [facility] Comment on above: Performed By: #### L 500.4050, L506.1000, L503.6150, L503.6550, L501.5200, L100.0100, L501.9520, L503.0105, L506.0400 #### [facility] [address] [place], [address] AST [Catalytic activity/Vol] 11 U/L Low 15-37 [facility] Comment on above: Performed By: #### L 500.4050, L506.1000, L503.6150, L503.6550, L501.5200, L100.0100, L501.9520, L503.0105, L506.0400 #### [facility] [address] [place], [address] Bilirubin [Mass/Vol] 0.50 mg/dL Normal 0.20-1.00 [facility] Comment on above: Result Comment: For patients on eltrombopag therapy, use of Dimension [place] TBIL is not recommended. Performed By: #### L 500.4050, L506.1000, L503.6150, L503.6550, L501.5200, L100.0100, L501.9520, L503.0105, L506.0400 #### [facility] [address] [place], [address] BUN/CRE 9.6 RATIO Low 10-20 [facility] Comment on above: Performed By: #### L 500.4050, L506.1000, L503.6150, L503.6550, L501.5200, L100.0100, L501.9520, L503.0105, L506.0400 #### [facility] [address] [place], [address] CA,Total 9.4 mg/dL Normal 8.5-10.1 [facility] Comment on above: Performed By: #### L 500.4050, L506.1000, L503.6150, L503.6550, L501.5200, L100.0100, L501.9520, L503.0105, L506.0400 #### [facility] [address] [place], [address] Chloride [Moles/Vol] 107 mmol/L Normal 98-107 [facility] Comment on above: Performed By: #### L 500.4050, L506.1000, L503.6150, L503.6550, L501.5200, L100.0100, L501.9520, L503.0105, L506.0400 #### [facility] [address] [place], [address] CO2 [Moles/Vol] 25.0 mmol/L Normal 21.0-32.0 [facility] Comment on above: Performed By: #### L 500.4050, L506.1000, L503.6150, L503.6550, L501.5200, L100.0100, L501.9520, L503.0105, L506.0400 #### [facility] [address] [place], [address] Creatinine [Mass/Vol] 0.73 mg/dL Normal 0.55-1.02 [facility] Comment on above: Result Comment: The validity of the calculated GFR GFRAA in patients over 70 years has not been determined. Clinical correlation is essential. Performed By: #### L 500.4050, L506.1000, L503.6150, L503.6550, L501.5200, L100.0100, L501.9520, L503.0105, L506.0400 #### [facility] [address] [place], [address] EST GFR - AA 119 mL/min Normal >60 [facility] Comment on above: Result Comment: Afri can [place] GFR Calc Performed By: #### L 500.4050, L506.1000, L503.6150, L503.6550, L501.5200, L100.0100, L501.9520, L503.0105, L506.0400 #### [facility] [address] [place], [place], [id number] GAP 6 Normal 5-15 [facility] Comment on above: Performed By: #### L 500.4050, L506.1000, L503.6150, L503.6550, L501.5200, L100.0100, L501.9520, L503.0105, L506.0400 #### [facility] [address] [place], [place], [id number] (154) GFR/1.73 sq M.predicted among non-blacks MDRD (S/P/Bld) [Vol rate/Area] 99 mL/min/{1.73_m2} Normal >60 [facility] Comment on above: Result Comment: Non- GFR Calc Performed By: #### L 500.4050, L506.1000, L503.6150, L503.6550, L501.5200, L100.0100, L501.9520, L503.0105, L506.0400 #### [facility] [address] [place], [address] Globulin (S) [Mass/Vol] 4.1 g/dL Normal 2.2-4.2 [facility] Comment on above: Performed By: #### L 500.4050, L506.1000, L503.6150, L503.6550, L501.5200, L100.0100, L501.9520, L503.0105, L506.0400 #### [facility] [address] [place], [address] Glucose [Mass/Vol] 89 mg/dL Normal 74-106 [facility] Comment on above: Performed By: #### L 500.4050, L506.1000, L503.6150, L503.6550, L501.5200, L100.0100, L501.9520, L503.0105, L506.0400 #### [facility] [address] [place], [address] Potassium [Moles/Vol] 3.6 mmol/L Normal 3.5-5.1 [facility] Comment on above: Performed By: #### L 500.4050, L506.1000, L503.6150, L503.6550, L501.5200, L100.0100, L501.9520, L503.0105, L506.0400 #### [facility] [address] [place], [address] Sodium [Moles/Vol] 138 mmol/L Normal 136-145 [facility] Comment on above: Performed By: #### L 500.4050, L506.1000, L503.6150, L503.6550, L501.5200, L100.0100, L501.9520, L503.0105, L506.0400 #### [facility] [address] [place], [address] T PROT 7.5 g/dL Normal 6.4-8.2 [facility] Comment on above: Performed By: #### L 500.4050, L506.1000, L503.6150, L503.6550, L501.5200, L100.0100, L501.9520, L503.0105, L506.0400 #### [facility] [address], [address] Urea nitrogen [Mass/Vol] 7 mg/dL Normal 7-18 [facility] Comment on above: Performed By: #### L 500.4050, L506.1000, L503.6150, L503.6550, L501.5200, L100.0100, L501.9520, L503.0105, L506.0400 #### [facility] [address] [facility] [place], [address] Ironon 07-22-2024 Iron [Mass/Vol] 75 ug/dL Normal 50-170 [facility] Comment on above: Performed By: #### L 500.4050, L506.1000, L503.6150, L503.6550, L501.5200, L100.0100, L501.9520, L503.0105, L506.0400 #### [facility] [address] [facility] [place], [address] Lipid Profileon 07-22-2024 Cholesterol [Mass/Vol] 184 mg/dL Normal 200 [facility] Comment on above: Result Comment: <200 mg/dL Desirable 200-240 mg/dL Borderline >240 mg/dL High Risk Performed By: #### L 500.4050, L506.1000, L503.6150, L503.6550, L501.5200, L100.0100, L501.9520, L503.0105, L506.0400 #### [facility] [address] [place], [address] Cholesterol in HDL [Mass/Vol] 79 mg/dL Normal [facility] Comment on above: Result Comment: The drugs N-Acetylcysteine and Metamizole may falsely depress this assay. Reference Range HDL <40 mg/dL Low HDL Cholesterol HDL >or= 60 mg/dL High HDL Cholesterol Performed By: #### L 500.4050, L506.1000, L503.6150, L503.6550, L501.5200, L100.0100, L501.9520, L503.0105, L506.0400 #### [facility] [address] [place], [address] Cholesterol in LDL [Mass/Vol] 78 mg/dL Normal 0-130 [facility] Comment on above: Performed By: #### L 500.4050, L506.1000, L503.6150, L503.6550, L501.5200, L100.0100, L501.9520, L503.0105, L506.0400 #### [facility] [address] [place], [place], [phone] Cholesterol in VLDL [Mass/Vol] 27 mg/dL Normal 5-40 [facility] Comment on above: Performed By: #### L 500.4050, L506.1000, L503.6150, L503.6550, L501.5200, L100.0100, L501.9520, L503.0105, L506.0400 #### [facility] [address] [place], [address] Triglyceride [Mass/Vol] 136 mg/dL Normal [facility] Comment on above: Result Comment: The drugs N-Acetylcysteine and Metamizole may falsely depress this assay. Serum Triglycerides Reference Interval Normal <150 mg/dL Borderline high 150 - 199 mg/dL High 200 - 499 mg/dL Very High > or = 500 mg/dL Performed By: #### L 500.4050, L506.1000, L503.6150, L503.6550, L501.5200, L100.0100, L501.9520, L503.0105, L506.0400 #### [facility] [address] [place], [place], [id number] Vitamin D,25 Hydroxyon 07-22 Vitamin D 25-OH 20.1 ng/mL Normal [facility] Comment on above: Result Comment: Jennifer min D 25(OH) Status Range Deficiency <20 ng/mL (50nmol/L) Insufficiency 20 - 30 ng/mL (50 - 75 nmol/L) Sufficiency 30 - 100 ng/mL (75 - 250 nmol/L) Toxicity >100 ng/mL (>250 nmol/L) Performed By: #### L 500.4050, L506.1000, L503.6150, L503.6550, L501.5200, L100.0100, L501.9520, L503.0105, L506.0400 #### [facility] [address] [place], [place], [id number] CBC W/Diff, Automatedon 03-03 Absolute Lymph 1.45 X10 3/uL Normal 0.83-4.51 [facility] Comment on above: Performed By: #### L 500.4050, L506.1000, L503.6150, L503.6550, L501.5200, L100.0100, L501.9520, L503.0105, L506.0400 #### [facility] [address] [place], [place], [phone] Absolute Neut 3.9 X10 3/uL Normal 2.0-7.7 [facility] Comment on above: Performed By: #### L 500.4050, L506.1000, L503.6150, L503.6550, L501.5200, L100.0100, L501.9520, L503.0105, L506.0400 #### [facility] [address] [place], [address] Basophils/100 WBC (Bld) 0.5 % Normal 0-1 [facility] Comment on above: Performed By: #### L 500.4050, L506.1000, L503.6150, L503.6550, L501.5200, L100.0100, L501.9520, L503.0105, L506.0400 #### [facility] [address] [place], [address] Eosinophils/100 WBC (Bld) 1.6 % Normal 0-5 [facility] Comment on above: Performed By: #### L 500.4050, L506.1000, L503.6150, L503.6550, L501.5200, L100.0100, L501.9520, L503.0105, L506.0400 #### [facility] [address] [place], [address] (154) Erythrocyte distribution width (RBC) [Ratio] 12.5 % Normal 11.6-14.6 [facility] Comment on above: Performed By: #### L 500.4050, L506.1000, L503.6150, L503.6550, L501.5200, L100.0100, L501.9520, L503.0105, L506.0400 #### [facility] [address] [place], [place], [phone] (607) Hematocrit (Bld) [Volume fraction] 38.4 % Normal 37-47 [facility] Comment on above: Performed By: #### L 500.4050, L506.1000, L503.6150, L503.6550, L501.5200, L100.0100, L501.9520, L503.0105, L506.0400 #### [facility] [address] [place], [address] Hemoglobin (Bld) [Mass/Vol] 12.7 g/dL Normal 12.0-15.0 [facility] Comment on above: Performed By: #### L 500.4050, L506.1000, L503.6150, L503.6550, L501.5200, L100.0100, L501.9520, L503.0105, L506.0400 #### [facility] [address] [place], [address] IG% 0.200 Normal 0.0-0.9 [facility] Comment on above: Result Comment: IG% - Immature Granulocytes (promyelocytes, myelocytes and metamyelocytes) > 1% indicates that a LEFT SHIFT is Present. Performed By: #### L 500.4050, L506.1000, L503.6150, L503.6550, L501.5200, L100.0100, L501.9520, L503.0105, L506.0400 #### [facility] [address] [place], [address] Lymphocytes/100 WBC (Bld) 23.8 % Normal 19-41 [facility] Comment on above: Performed By: #### L 500.4050, L506.1000, L503.6150, L503.6550, L501.5200, L100.0100, L501.9520, L503.0105, L506.0400 #### [facility] [address] [place], [address] MCH (RBC) [Entitic mass] 28.0 pg Normal 27.0-32.0 [facility] Comment on above: Performed By: #### L 500.4050, L506.1000, L503.6150, L503.6550, L501.5200, L100.0100, L501.9520, L503.0105, L506.0400 #### [facility] [address] [place], [address] MCHC (RBC) [Mass/Vol] 33.1 g/dL Normal 32-36 [facility] Comment on above: Performed By: #### L 500.4050, L506.1000, L503.6150, L503.6550, L501.5200, L100.0100, L501.9520, L503.0105, L506.0400 #### [facility] [address] [place], [address] MCV (RBC) [Entitic vol] 84.6 fL Normal 81-99 [facility] Comment on above: Performed By: #### L 500.4050, L506.1000, L503.6150, L503.6550, L501.5200, L100.0100, L501.9520, L503.0105, L506.0400 #### [facility] [address] [place], [address] Monocytes/100 WBC (Bld) 10.0 % Normal 0-10 [facility] Comment on above: Performed By: #### L 500.4050, L506.1000, L503.6150, L503.6550, L501.5200, L100.0100, L501.9520, L503.0105, L506.0400 #### [facility] [address] [place], [address] Neutrophils/100 WBC (Bld) 63.9 % Normal 47-70 [facility] Comment on above: Performed By: #### L 500.4050, L506.1000, L503.6150, L503.6550, L501.5200, L100.0100, L501.9520, L503.0105, L506.0400 #### [facility] [address] [place], [address] Nucleated RBC (Bld) [#/Vol] 0 10*3/uL Normal 0-5 [facility] Comment on above: Performed By: #### L 500.4050, L506.1000, L503.6150, L503.6550, L501.5200, L100.0100, L501.9520, L503.0105, L506.0400 #### [facility] [address] [place], [address] Platelet mean volume (Bld) [Entitic vol] 10.9 fL Normal 6.2-12.0 [facility] Comment on above: Performed By: #### L 500.4050, L506.1000, L503.6150, L503.6550, L501.5200, L100.0100, L501.9520, L503.0105, L506.0400 #### [facility] [address] [place], [address] Platelets (Bld) [#/Vol] 280 10*3/uL Normal 150-450 [facility] Comment on above: Performed By: #### L 500.4050, L506.1000, L503.6150, L503.6550, L501.5200, L100.0100, L501.9520, L503.0105, L506.0400 #### [facility] [address] [place], [address] RBC (Bld) [#/Vol] 4.54 10*6/uL Normal 4.2-5.4 [facility] Comment on above: Performed By: #### L 500.4050, L506.1000, L503.6150, L503.6550, L501.5200, L100.0100, L501.9520, L503.0105, L506.0400 #### [facility] [address] [place], [address] RDW SD 38.3 fl Normal 35.1-43.9 [facility] Comment on above: Performed By: #### L 500.4050, L506.1000, L503.6150, L503.6550, L501.5200, L100.0100, L501.9520, L503.0105, L506.0400 #### [facility] [address] [place], [address] WBC (Bld) [#/Vol] 6.1 10*3/uL Normal 4.4-11.0 [facility] Comment on above: Performed By: #### L 500.4050, L506.1000, L503.6150, L503.6550, L501.5200, L100.0100, L501.9520, L503.0105, L506.0400 #### [facility] [address] [place], [address] Comprehensive Metabolic Prof ilon 03-18-2024 Albumin [Mass/Vol] 3.6 g/dL Normal 3.2-5.0 [facility] Comment on above: Performed By: #### L 500.4050, L506.1000, L503.6150, L503.6550, L501.5200, L100.0100, L501.9520, L503.0105, L506.0400 #### [facility] [address] [place], [address] Albumin/Globulin [Mass ratio] 0.9 {ratio} Normal 0.9-2.4 [facility] Comment on above: Performed By: #### L 500.4050, L506.1000, L503.6150, L503.6550, L501.5200, L100.0100, L501.9520, L503.0105, L506.0400 #### [facility] [address] [place], [address] ALK P 54 U/L Normal 45-117 [facility] Comment on above: Performed By: #### L 500.4050, L506.1000, L503.6150, L503.6550, L501.5200, L100.0100, L501.9520, L503.0105, L506.0400 #### [facility] [address] [place], [address] ALT [Catalytic activity/Vol] 22 U/L Normal 13-56 [facility] Comment on above: Performed By: #### L 500.4050, L506.1000, L503.6150, L503.6550, L501.5200, L100.0100, L501.9520, L503.0105, L506.0400 #### [facility] [address] [place], [address] AST [Catalytic activity/Vol] 14 U/L Low 15-37 [facility] Comment on above: Performed By: #### L 500.4050, L506.1000, L503.6150, L503.6550, L501.5200, L100.0100, L501.9520, L503.0105, L506.0400 #### [facility] [address] [place], [address] Bilirubin [Mass/Vol] 0.50 mg/dL Normal 0.20-1.00 [facility] Comment on above: Result Comment: For patients on eltrombopag therapy, use of Dimension [place] TBIL is not recommended. Performed By: #### L 500.4050, L506.1000, L503.6150, L503.6550, L501.5200, L100.0100, L501.9520, L503.0105, L506.0400 #### [facility] [address] [place], [address] BUN/CRE 11.8 RATIO Normal 10-20 [facility] Comment on above: Performed By: #### L 500.4050, L506.1000, L503.6150, L503.6550, L501.5200, L100.0100, L501.9520, L503.0105, L506.0400 #### [facility] [address] [place], [address] CA,Total 9.2 mg/dL Normal 8.5-10.1 [facility] Comment on above: Performed By: #### L 500.4050, L506.1000, L503.6150, L503.6550, L501.5200, L100.0100, L501.9520, L503.0105, L506.0400 #### [facility] [address] [place], [address] Chloride [Moles/Vol] 104 mmol/L Normal 98-107 [facility] Comment on above: Performed By: #### L 500.4050, L506.1000, L503.6150, L503.6550, L501.5200, L100.0100, L501.9520, L503.0105, L506.0400 #### [facility] [address] [place], [address] CO2 [Moles/Vol] 25.0 mmol/L Normal 21.0-32.0 [facility] Comment on above: Performed By: #### L 500.4050, L506.1000, L503.6150, L503.6550, L501.5200, L100.0100, L501.9520, L503.0105, L506.0400 #### [facility] [address] [place], [address] Creatinine [Mass/Vol] 0.68 mg/dL Normal 0.55-1.02 [facility] Comment on above: Result Comment: The validity of the calculated GFR GFRAA in patients over 70 years has not been determined. Clinical correlation is essential. Performed By: #### L 500.4050, L506.1000, L503.6150, L503.6550, L501.5200, L100.0100, L501.9520, L503.0105, L506.0400 #### [facility] [address] [place], [address] EST GFR - AA 129 mL/min Normal >60 [facility] Comment on above: Result Comment: Afri can Bah[place] GFR Calc Performed By: #### L 500.4050, L506.1000, L503.6150, L503.6550, L501.5200, L100.0100, L501.9520, L503.0105, L506.0400 #### [facility] [address] [place], [address] GAP 8 Normal 5-15 [facility] Comment on above: Performed By: #### L 500.4050, L506.1000, L503.6150, L503.6550, L501.5200, L100.0100, L501.9520, L503.0105, L506.0400 #### [facility] [address] [place], [address] GFR/1.73 sq M.predicted among non-blacks MDRD (S/P/Bld) [Vol rate/Area] 107 mL/min/{1.73_m2} Normal >60 [facility] Comment on above: Result Comment: Non- GFR Calc Performed By: #### L 500.4050, L506.1000, L503.6150, L503.6550, L501.5200, L100.0100, L501.9520, L503.0105, L506.0400 #### [facility] [address] [place], [address] Globulin (S) [Mass/Vol] 4.0 g/dL Normal 2.2-4.2 [facility] Comment on above: Performed By: #### L 500.4050, L506.1000, L503.6150, L503.6550, L501.5200, L100.0100, L501.9520, L503.0105, L506.0400 #### [facility] [address] [place], [address] Glucose [Mass/Vol] 82 mg/dL Normal 74-106 [facility] Comment on above: Performed By: #### L 500.4050, L506.1000, L503.6150, L503.6550, L501.5200, L100.0100, L501.9520, L503.0105, L506.0400 #### [facility] [address] [place], [address] Potassium [Moles/Vol] 3.7 mmol/L Normal 3.5-5.1 [facility] Comment on above: Performed By: #### L 500.4050, L506.1000, L503.6150, L503.6550, L501.5200, L100.0100, L501.9520, L503.0105, L506.0400 #### [facility] [address] [place], [address] Sodium [Moles/Vol] 137 mmol/L Normal 136-145 [facility] Comment on above: Performed By: #### L 500.4050, L506.1000, L503.6150, L503.6550, L501.5200, L100.0100, L501.9520, L503.0105, L506.0400 #### [facility] [address] [place], [address] T PROT 7.6 g/dL Normal 6.4-8.2 [facility] Comment on above: Performed By: #### L 500.4050, L506.1000, L503.6150, L503.6550, L501.5200, L100.0100, L501.9520, L503.0105, L506.0400 #### [facility] [address] [place], [address] Urea nitrogen [Mass/Vol] 8 mg/dL Normal 7-18 [facility] Comment on above: Performed By: #### L 500.4050, L506.1000, L503.6150, L503.6550, L501.5200, L100.0100, L501.9520, L503.0105, L506.0400 #### [facility] [address] [place], [address] Ferritinon 03-18-2024 Ferritin [Mass/Vol] 26 ng/mL Normal 8-252 [facility] Comment on above: Performed By: #### L 500.4050, L506.1000, L503.6150, L503.6550, L501.5200, L100.0100, L501.9520, L503.0105, L506.0400 #### [facility] [address] [place], [place], [id number] Ironon 03-18-2024 Iron [Mass/Vol] 69 ug/dL Normal 50-170 [facility] Comment on above: Performed By: #### L 500.4050, L506.1000, L503.6150, L503.6550, L501.5200, L100.0100, L501.9520, L503.0105, L506.0400 #### [facility] [address] [place], [place], [id number] Magnesiumon 03-18-2024 Magnesium [Mass/Vol] 2.2 mg/dL Normal 1.6-2.6 [facility] Comment on above: Performed By: #### L 500.4050, L506.1000, L503.6150, L503.6550, L501.5200, L100.0100, L501.9520, L503.0105, L506.0400 #### [facility] [address] [place], [place], [id number] T4 Free Directon 03-18-2024 T4 FREE DIRECT 1.10 ng/dL Normal 0.76-1.46 [facility] Comment on above: Performed By: #### L 500.4050, L506.1000, L503.6150, L503.6550, L501.5200, L100.0100, L501.9520, L503.0105, L506.0400 #### [facility] [address] [place], [place], [id number] Thyroid Stim Hormone (TSH)on 03-18-2024 TSH 1.38 uIU/mL Normal 0.358-3.74 [facility] Comment on above: Performed By: #### L 500.4050, L506.1000, L503.6150, L503.6550, L501.5200, L100.0100, L501.9520, L503.0105, L506.0400 #### [facility] [address] [place], [place], [id number] (153) Vitamin B12on 03-18-2024 Cobalamin (Vitamin B12) [Mass/Vol] 288 pg/mL Normal 211-911 [facility] Comment on above: Performed By: #### L 500.4050, L506.1000, L503.6150, L503.6550, L501.5200, L100.0100, L501.9520, L503.0105, L506.0400 #### [facility] [address] [place], [address] Vitamin D,25 Hydroxyon 03-18 Vitamin D 25-OH 48.4 ng/mL Normal [facility] Comment on above: Result Comment: Jennifer min D 25(OH) Status Range Deficiency <20 ng/mL (50nmol/L) Insufficiency 20 - 30 ng/mL (50 - 75 nmol/L) Sufficiency 30 - 100 ng/mL (75 - 250 nmol/L) Toxicity >100 ng/mL (>250 nmol/L) Performed By: #### L 500.4050, L506.1000, L503.6150, L503.6550, L501.5200, L100.0100, L501.9520, L503.0105, L506.0400 #### [facility] [address] [place], [address] Cervical or vaginal specimen microscopic examination by liquid based cytology (reportOrdered By: Shirley Gregg on 11-29-2023 Cytology report Cyto stain.thin prep Doc (Cvx/Vag) Comment . [facility] Comment on above: Criteria not met, HP V Genotype not performed.Performed at: [address], [place] [id number] Director: Edwina Sargent MD, Phone: [phone] at: =G - [facility] [address] [place], [place] [id number] Director: Edwina Sargent MD, Phone: [phone] Cervical or vagninal specime n microscopic examination by cytology stain (reported asOrdered By: Shirley Gregg on 11-29-2023 Cytology report Cyto stain Doc (Cvx/Vag) Comment . [facility] Comment on above: The Pap smear is a s creening test designed to aid in thedetection of premalignant and malignant conditions of theuterine cervix. It is not a diagnostic procedure andshould not be used as the sole means of detecting cervicalcancer. Both false-positive and false-negative reports dooccur. Detection in cervical specim en of any of human papilloma virus (HPV) 16, 18, 31, 33,Ordered By: Shirley Gregg on 11-29-2023 HPV 16+18+31+33+35+39+45+51+ 52+56+58+59+66+68 DNA Probe+sig amp Ql (Cvx) Negative Negative [facility] Comment on above: This nucleic acid am plification test detects fourteen high-risk HPV types (16,18,31,33,35,39,45,51,52,56,58,59,66,68)without differentiation. Laboratory - CytologyOrdered By: Shirley Gregg on 11-29-2023 Founder Ceo & President Cyto stain Nom (Cvx/Vag) [ID] Comment . [facility] Comment on above: Paulie Rebolledo , Licensed Practical Nurse (ASCP) Laboratory - Miscellaneous t estsOrdered By: Shirley Gregg on 11-29-2023 Service comment (Unsp spec) [Interp] . . [facility] Thin prep Papanicolaou smear with manual screeningOrdered By: Shirley Gregg on 11-29-2023 Thin prep Papanicolaou smear with manual screening Comment . [facility] Comment on above: NEGATIVE FOR INTRAEP ITHELIAL LESION OR MALIGNANCY. This liquid based Th inPrep(R) pap test was screened withthe use of an image guided system. Absolute lymphocyte countOrd ered By: Denia Ramirez on 07-23-2023 Lymphocytes Auto (Unsp spec) [#/Vol] 1.67 10*3/uL 0.83-4.51 [facility] Basophil percentageOrdered B y: Denia Ramirez on 07-23-2023 Basophils/100 WBC (Bld) 0.7 % 0-1 [facility] Bilirubin [Mass/Vol] 0.30 mg/dL 0.20-1.00 [facility] Comment on above: For patients on eltr ombopag therapy, use of Dimension [place] TBIL is not recommended. Chloride [Moles/Vol] 107 mmol/L 98-107 [facility] Cholesterol [Mass/Vol] 162 mg/dL <200 [facility] Comment on above: <200 mg/dL Desirable 200-240 mg/dL Borderline >240 mg/dL High Risk Eosinophils/100 WBC (Bld) 1.9 % 0-5 [facility] Glucose [Mass/Vol] 92 mg/dL 74-106 [facility] Neutrophils (Bld) [#/Vol] 4.5 10*3/uL 2.0-7.7 [facility] Neutrophils/100 WBC (Bld) 62.3 % 47-70 [facility] Potassium [Moles/Vol] 3.8 mmol/L 3.5-5.1 [facility] Protein [Mass/Vol] 7.2 g/dL 6.4-8.2 [facility] Sodium [Moles/Vol] 138 mmol/L 136-145 [facility] Triglyceride [Mass/Vol] 104 mg/dL <199 [facility] Comment on above: The drugs N-Acetylcy steine and Metamizole may falsely depress this assay.Serum Triglycerides Reference Interval Normal <150 mg/dL Borderline high 150 - 199 mg/dL High 200 - 499 mg/dL Very High > or = 500 mg/dL WBC (Bld) [#/Vol] 7.3 10*3/uL 4.4-11.0 [facility] Blood erythrocytes count (nu mber/volume)Ordered By: Denia Guardadogar on 07-23-2023 RBC (Bld) [#/Vol] 4.27 10*6/uL 4.2-5.4 [facility] Blood hemoglobin measurement (mass/volume)Ordered By: Deniabetsy Ramirez on 07-23-2023 Hemoglobin (Bld) [Mass/Vol] 12.3 g/dL 12.0-15.0 [facility] Blood lymphocytes/100 leukoc ytesOrdered By: Deniabetsy Ramirez on 07-23-2023 Lymphocytes/100 WBC (Bld) 22.9 % 19-41 [facility] Blood monocytes/100 leukocyt esOrdered By: Deniabetsy Ramirez on 07-23-2023 Monocytes/100 WBC (Bld) 11.9 % 0-10 [facility] Blood platelet mean volumeOr dered By: Deniabetsy Ramirez on 07-23-2023 Platelet mean volume (Bld) [Entitic vol] 11.1 fL 6.2-12.0 [facility] Determination of erythrocyte mean corpuscular volume (MCV)Ordered By: Deniabetsy Ramirez on 07-23-2023 MCV (RBC) [Entitic vol] 87.8 fL 81-99 [facility] Hematocrit Auto (Bld) [Volum e fraction]Ordered By: Deniabetsy Ramirez on 07-23-2023 Hematocrit (Bld) [Volume fraction] 37.5 % 37-47 [facility] Laboratory - Chemistry and C hemistry - challengeOrdered By: Raymond James on 07-23-2023 ALP [Catalytic activity/Vol] 46 U/L 45-117 [facility] ALT [Catalytic activity/Vol] 16 U/L 13-56 [facility] CO2 [Moles/Vol] 26.0 mmol/L 21.0-32.0 [facility] Globulin (S) [Mass/Vol] 3.9 g/dL 2.2-4.2 [facility] Urea nitrogen/Creatinine [Mass ratio] 18.5 mg/mg 10-20 [facility] Laboratory - Hematology and Cell countsOrdered By: Deniabetsy Ramirez on 07-23-2023 Erythrocyte distribution width (RBC) [Entitic vol] 39.5 fL 35.1-43.9 [facility] Erythrocyte distribution width (RBC) [Ratio] 12.3 % 11.6-14.6 [facility] Immature granulocytes/100 WBC (Bld) 0.300 % 0.0-0.9 [facility] Comment on above: IG% - Immature Granu locytes (promyelocytes, myelocytes and metamyelocytes) > 1% indicates that a LEFT SHIFT is Present. MCH (RBC) [Entitic mass] 28.8 pg 27.0-32.0 [facility] Nucleated RBC/100 WBC (Bld) [Ratio] 0 % 0-5 [facility] MCHC Auto (RBC) [Mass/Vol]Or dered By: Denia Ramirez on 07-23-2023 MCHC (RBC) [Mass/Vol] 32.8 g/dL 32-36 [facility] No Panel InformationOrdered By: Denia Ramirez on 07-23-2023 Estimated GFR (MDRD) Amer 137 mL/min >60 [facility] Comment on above: GFR Calc Estimated GFR (MDRD) Non-Af Amer 113 mL/min >60 [facility] Comment on above: Non- GFR Calc Thyroid Stimulating Hormone (TSH) 1.66 uIU/mL 0.358-3.74 [facility] Vitamin D 25-Hydroxy 28.2 ng/mL [facility] Comment on above: Vitamin D 25(OH) Sta tus Range Deficiency <20 ng/mL (50nmol/L) Insufficiency 20 - 30 ng/mL (50 - 75 nmol/L) Sufficiency 30 - 100 ng/mL (75 - 250 nmol/L) Toxicity >100 ng/mL (>250 nmol/L) Platelets bldOrdered By: Lio Ramirez on 07-23-2023 Platelets (Bld) [#/Vol] 270 10*3/uL 150-450 [facility] Serum or plasma albumin yousif urement (mass/volume)Ordered By: Denia Ramirez on 07-23-2023 Albumin [Mass/Vol] 3.3 g/dL 3.2-5.0 [facility] Serum or plasma albumin/glob ulin mass ratioOrdered By: Denia Ramirez on 07-23-2023 Albumin/Globulin [Mass ratio] 0.8 {ratio} 0.9-2.4 [facility] Serum or plasma calcium yousif urement (mass/volume)Ordered By: Denia Ramirez on 07-23-2023 Calcium [Mass/Vol] 8.5 mg/dL 8.5-10.1 [facility] Serum or plasma cholesterol in HDL measurement (mass/volume)Ordered By: Denia Ramirez on 07-23-2023 Cholesterol in HDL [Mass/Vol] 69 mg/dL >40 [facility] Comment on above: The drugs N-Acetylcy steine and Metamizole may falsely depress this assay. Reference Range HDL <40 mg/dL Low HDL Cholesterol HDL >or= 60 mg/dL High HDL Cholesterol Serum or plasma cholesterol in VLDL measurement (mass/volume)Ordered By: Denia Ramirez on 07-23-2023 Cholesterol in VLDL [Mass/Vol] 21 mg/dL 5-40 [facility] Serum or plasma creatinine m easurement (mass/volume)Ordered By: Denia Ramirez on 07-23-2023 Creatinine [Mass/Vol] 0.65 mg/dL 0.55-1.02 [facility] Comment on above: The validity of the calculated GFR & GFRAA in patients over 70 years has not been determined. Clinical correlation is essential. Serum or plasma low density lipoprotein (LDL) cholesterol measurement (mass/volume)Ordered By: Denia Ramirez on 07-23-2023 Cholesterol in LDL [Mass/Vol] 72 mg/dL 0-130 [facility] Serum or plasma urea nitroge n measurement (mass/volume)Ordered By: Deniabetsy Ramirez on 07-23-2023 Urea nitrogen [Mass/Vol] 12 mg/dL 7-18 [facility] Thin prep Papanicolaou smear with manual screeningOrdered By: Raymond James on 07-23-2023 Thin prep Papanicolaou smear with manual screening 9 U/L 15-37 [facility] Thin prep Papanicolaou smear with manual screening 5 5-15 [facility] Absolute lymphocyte counton 07-14-2022 Lymphocytes Auto (Unsp spec) [#/Vol] 1.66 10*3/uL 0.83-4.51 [facility] Work Phone: Basophil percentageon 2021 Basophils/100 WBC (Bld) 0.7 % 0-1 [facility] Work Phone: Bilirubin [Mass/Vol] 0.60 mg/dL 0.20-1.00 [facility] Work Phone: Comment on above: For patients on eltr ombopag therapy, use of Dimension [place] TBIL is not recommended. Chloride [Moles/Vol] 103 mmol/L 98-[address] [facility] Work Phone: Cholesterol [Mass/Vol] 172 mg/dL <200 [facility] Work Phone: Comment on above: <200 mg/dL Desirable 200-240 mg/dL Borderline >240 mg/dL High Risk Eosinophils/100 WBC (Bld) 0.9 % 0-5 [facility] Work Phone: Glucose [Mass/Vol] 77 mg/dL 74-106 [facility] Work Phone: Neutrophils (Bld) [#/Vol] 5.1 10*3/uL 2.0-7.7 [facility] Work Phone: Neutrophils/100 WBC (Bld) 67.3 % 47-70 [facility] Work Phone: Potassium [Moles/Vol] 3.4 mmol/L 3.5-5.1 [facility] Work Phone: Protein [Mass/Vol] 7.3 g/dL 6.4-8.2 [facility] Work Phone: Sodium [Moles/Vol] 138 mmol/L 136-145 [facility] Work Phone: Triglyceride [Mass/Vol] 110 mg/dL <199 [facility] Work Phone: Comment on above: The drugs N-Acetylcy steine and Metamizole may falsely depress this assay.Serum Triglycerides Reference Interval Normal <150 mg/dL Borderline high 150 - 199 mg/dL High 200 - 499 mg/dL Very High > or = 500 mg/dL WBC (Bld) [#/Vol] 7.5 10*3/uL 4.4-11.0 [facility] Work Phone: Blood erythrocytes count (nu mber/volume)on 07-14-2022 RBC (Bld) [#/Vol] 4.32 10*6/uL 4.2-5.4 [facility] Work Phone: Blood hemoglobin measurement (mass/volume)on 07-14-2022 Hemoglobin (Bld) [Mass/Vol] 12.5 g/dL 12.0-15.0 [facility] Work Phone: Blood lymphocytes/100 leukoc yteson 07-14-2022 Lymphocytes/100 WBC (Bld) 22.0 % 19-41 [facility] Work Phone: [phone] Blood monocytes/100 leukocyt eson 07-14-2022 Monocytes/100 WBC (Bld) 8.8 % 0-10 [facility] Work Phone: Blood platelet mean volumeon 07-14-2022 Platelet mean volume (Bld) [Entitic vol] 10.9 fL 6.2-12.0 [facility] Work Phone: Determination of erythrocyte mean corpuscular volume (MCV)on 07-14-2022 MCV (RBC) [Entitic vol] 86.1 fL 81-99 [facility] Work Phone: Hematocrit Auto (Bld) [Volum e fraction]on 07-14-2022 Hematocrit (Bld) [Volume fraction] 37.2 % 37-47 [facility] Work Phone: Laboratory - Chemistry and C hemistry - challengeon 07-14-2022 ALP [Catalytic activity/Vol] 47 U/L 45-117 [facility] Work Phone: ALT [Catalytic activity/Vol] 19 U/L 13-56 [facility] Work Phone: [phone] CO2 [Moles/Vol] 27.0 mmol/L 21.0-32.0 [facility] Work Phone: Globulin (S) [Mass/Vol] 3.7 g/dL 2.2-4.2 [facility] Work Phone: Urea nitrogen/Creatinine [Mass ratio] 10.8 mg/mg 10-20 [facility] Work Phone: Laboratory - Hematology and Cell countson 07-14-2022 Erythrocyte distribution width (RBC) [Entitic vol] 38.5 fL 35.1-43.9 [facility] Work Phone: [phone] Erythrocyte distribution width (RBC) [Ratio] 12.2 % 11.6-14.6 [facility] Work Phone: [phone] Immature granulocytes/100 WBC (Bld) 0.300 % 0.0-0.9 [facility] Work Phone: [phone] Comment on above: IG% - Immature Granu locytes (promyelocytes, myelocytes and metamyelocytes) > 1% indicates that a LEFT SHIFT is Present. MCH (RBC) [Entitic mass] 28.9 pg 27.0-32.0 [facility] Work Phone: [phone] Nucleated RBC/100 WBC (Bld) [Ratio] 0 % 0-5 [facility] Work Phone: [phone] MCHC Auto (RBC) [Mass/Vol]on 07-14-2022 MCHC (RBC) [Mass/Vol] 33.6 g/dL 32-36 [facility] Work Phone: No Panel Informationon 07-14 Estimated GFR (MDRD) Amer 138 mL/min >60 [facility] Work Phone: Comment on above: GFR Calc Estimated GFR (MDRD) Non-Af Amer 114 mL/min >60 [facility] Work Phone: [phone] Comment on above: Non- GFR Calc Thyroid Stimulating Hormone (TSH) 1.14 uIU/mL 0.358-3.74 [facility] Work Phone: [phone] Vitamin D 25-Hydroxy 21.9 ng/mL [facility] Work Phone: [phone] Comment on above: Vitamin D 25(OH) Sta tus Range Deficiency <20 ng/mL (50nmol/L) Insufficiency 20 - 30 ng/mL (50 - 75 nmol/L) Sufficiency 30 - 100 ng/mL (75 - 250 nmol/L) Toxicity >100 ng/mL (>250 nmol/L) Platelets bldon 11-11-2022 Platelets (Bld) [#/Vol] 264 10*3/uL 150-450 [facility] Work Phone: Serum or plasma albumin yousif urement (mass/volume)on 07-14-2022 Albumin [Mass/Vol] 3.6 g/dL 3.2-5.0 [facility] Work Phone: Serum or plasma albumin/glob ulin mass ratioon 07-14-2022 Albumin/Globulin [Mass ratio] 1.0 {ratio} 0.9-2.4 [facility] Work Phone: Serum or plasma calcium yousif urement (mass/volume)on 07-14-2022 Calcium [Mass/Vol] 9.1 mg/dL 8.5-10.1 [facility] Work Phone: Serum or plasma cholesterol in HDL measurement (mass/volume)on 07-14-2022 Cholesterol in HDL [Mass/Vol] 68 mg/dL >40 [facility] Work Phone: Comment on above: The drugs N-Acetylcy steine and Metamizole may falsely depress this assay. Reference Range HDL <40 mg/dL Low HDL Cholesterol HDL >or= 60 mg/dL High HDL Cholesterol Serum or plasma cholesterol in VLDL measurement (mass/volume)on 07-14-2022 Cholesterol in VLDL [Mass/Vol] 22 mg/dL 5-40 [facility] Work Phone: Serum or plasma creatinine m easurement (mass/volume)on 07-14-2022 Creatinine [Mass/Vol] 0.65 mg/dL 0.55-1.02 [facility] Work Phone: Comment on above: The validity of the calculated GFR & GFRAA in patients over 70 years has not been determined. Clinical correlation is essential. Serum or plasma low density lipoprotein (LDL) cholesterol measurement (mass/volume)on 07-14-2022 Cholesterol in LDL [Mass/Vol] 82 mg/dL 0-130 [facility] Work Phone: Serum or plasma urea nitroge n measurement (mass/volume)on 07-14-2022 Urea nitrogen [Mass/Vol] 7 mg/dL 7-18 [facility] Work Phone: Thin prep Papanicolaou smear with manual screeningon 07-14-2022 Thin prep Papanicolaou smear with manual screening 14 U/L 15-37 [facility] Work Phone: Thin prep Papanicolaou smear with manual screening 8 5-15 [facility] Work Phone: CNOVon 05-10-2021 CNOV Office Visit (GENSWS ) LANA TRAN ([id number]) 1990 F Date Time Provider Department 05/10/21 9:00 AM OLGA SUAREZ During your visit today, we recorded the following information about you: Temperature Pulse Respiration Blood pressure 97.5 degrees 118/minute 18/minute 118/58 Weight Last Period 80.8 kg 04/18/21 Olga Suarez PA-C 05/10/2021 9:39 AM Signed -OK to advance diet as tolerated -Miralax as needed and fluids, fiber to help regulate bowel movements The following instructions are important for you related to your office visit today with the [facility] General Surgeons. INSTRUCTIONS FOLLOWING YOU RECENT GALLBLADDER SURGERY You should be returning to your regular diet, If you have having persistent issues with tolerating your diet, please contact our office It is not unusual to have pain similar to your gallbladder symptoms for the first 1-2 weeks following surgery. If this persists beyond 2 weeks, contact the office. It is not unusual to have loose stools following surgery. This is usually self limited and related to the antibiotics that were given during your surgical procedure. Fiber supplementation and yogurt with active cultures may help you return to regular bowel activity. If you note loose stools persisting for over 2 weeks, or significant cramping or loose bloody stools, contact the office immediately. You may return to your regular activities. You may drive if you are no longer taking narcotic pain medication. You should perform no lifting greater than 20lbs for the next 3-4 weeks. Contact the office immediately if any of your incisions become increasingly tender, red or have drainage. Again, if you have any difficulties or concerns, contact our office immediately. If you note any additional difficulties, questions, or concerns, you should contact our office immediately @ [phone] and ask to be transferred to the General Surgery department. Olga Suarez PA-C 05/10/2021 9:48 AM Signed FOLLOW UP VISIT - CHOLECYSTECTOMY NAME: Lana Flood [facility] NO.: [id number] DATE OF SERVICE: 05/10/2021 : 1990 REFERRING PHYSICIAN: Monica Jones DO, DO Lana is a patient I am following with Dr. Jalloh for a complaint of right upper quadrant pain. Dr. Jalloh performed a laparoscopic cholecystectomy on 04/27/21. Pathology demonstrated: FINAL DIAGNOSIS Gallbladder, cholecystectomy - Chronic cholecystitis with cholelithiasis and cholesterolosis. The patient currently notes no complaints. Her appetite has been good. She notes having less frequent bowel movements than usual, but admits to not eating normally yet as she is still nervous to eat much based on her preoperative symptoms. She states she has been drinking plenty of fluids. She denies fever, chills or abdominal pain. she does note some mild incisional discomfort. VITALS: Blood pressure 118/58, pulse 118, temperature 36.4 ?C (97.5 ?F), resp. rate 18, weight 80.8 kg (178 lb 3.2 oz), last menstrual period 04/18/2021, SpO2 98 %. On examination, the abdomen is benign. The incisions are healing well without signs of infection or inflammation. Assessment IMPRESSION: status post laparoscopic cholecystectomy, chronic cholecystitis and cholelithiasis PLAN: -OK to advance diet as tolerated -Miralax as needed and fluids, fiber to help regulate bowel movements If the patient notes any problems, she should contact me immediately. she may return to her regular activities as tolerated, with the exception of no lifting greater than 20 pounds for the next 3 weeks. The patient is to contact me immediately is she experiences any of her preoperative symptoms. We discussed that occasional right up quadrant symptoms similar to the preoperative complaints can occur in the first couple of weeks post operatively. If this persists beyond the first 2-3 weeks, they should contact our office. Diagnoses: (K80.10) Calculus of gallbladder with chronic cholecystitis without obstruction (primary encounter diagnosis) Return to Clinic: The patient is instructed to follow-up with me as needed. Olga Suarez PA-C Referring Provider: OLGA SUAREZ [[id number]] Allergies As of Date: 05/10/2021 (No Known Allergies) Date Reviewed: 05/10/2021 Reviewed by: Ivette Casas RN - Fully Assessed Reason for Visit: Post Op Follow Up [3947] Primary Visit Diagnosis:Calculus of gallbladder with chronic cholecystitis without obstruction [K80.10] Prescriptions as of 05/10/2021 - omeprazole (PRILOSEC) 40 mg capsule Take 40 mg by mouth once daily. - ergocalciferol 50,000 unit capsule (VITAMIN D2, DRISDOL) Take 1 capsule by mouth one time a week. - XULANE 150-35 mcg/24 hr patch APPLY 1 PATCH TOPICALLY ONCE A WEEK Problem List As Of Date 05/10/2021 Noted Resolved Pilonidal cyst without abscess [L05. (more content not included)... Normal [facility] ANES POSTPROC EVALon 021 ANES POSTPROC EVAL HNO ID: [id number] Author: Alex Gregg MD Service: Anesthesiology Author Type: Anesthesiologist Type: Anesthesia Postprocedure Evaluation Filed: 04/27/2021 12:20 PM Note Text: POST ANESTHESIA EVALUATION NOTE : 1990 Procedure Summary Date: 04/27/21 Room / Location: [facility] OR04 / [facility] OR Anesthesia Start: 1047 Anesthesia Stop: 1152 Procedure: LAPAROSCOPIC CHOLECYSTECTOMY (N/A Abdomen) Diagnosis: Calculus of gallbladder with chronic cholecystitis without obstruction Surgeons: Emiliano Jalloh MD Responsible Provider: Hanna Monteiro MD Anesthesia Type: general ASA Status: 1 Anesthesia Type: general Last vitals Vitals Value Taken Time BP 122/69 04/27/21 1150 Temp 36.5 ?C (97.7 ?F) 04/27/21 1150 Pulse 79 08/25/21 1150 Resp 16 04/27/21 1150 SpO2 98 % 04/27/21 1150 Post Anesthesia Patient Status Patient Evaluation: bedside. Anticipated Disposition: phase 2 then home. Neurological Status: aware and responsive. Pulmonary Status: breathing comfortably on room air Airway Control: returned to baseline unsupported. Cardiovascular Status: stable. Pain Management: clinically adequate Postoperative Hydration: acceptable. Intraoperative Events: no significant anesthesia events Post Operative Nausea/Vomiting Status: no significant post operative nausea or vomiting Anesthetic Observations: Recommendation: continue current plan of care. No complications documented. SIGNATURE: Alex Gregg MD PATIENT NAME: Lana Tran DATE: April 27, 2021 TIME: 12:20 PM CSN: [id number] [facility] ANES PRE-OPon 04-27-2021 ANES PRE-OP HNO ID: [id number] Author: Sherrie Naranjo MD Service: Anesthesiology Author Type: Anesthesiologist Type: Anesthesia Preprocedure Evaluation Filed: 04/27/2021 10:36 AM Note Text: ANESTHESIOLOGY DAY OF SURGERY NOTE : 1990 Procedure(s) (LRB): LAPAROSCOPIC CHOLECYSTECTOMY (N/A) Surgeon(s): Emiliano Jalloh MD Estimated body mass index is 30.55 kg/m? as calculated from the following: Height as of this encounter: 162.6 cm (5' 4). Weight as of this encounter: 80.7 kg (178 lb). Most recent hematocrit and potassium results: No results found for this basename: HCT,HEMATOCRIT,K,POTAS SIUM Relevant Problems No relevant active problems I - PHYSICAL EVALUATION AIRWAY Patient intubated: No. Tracheostomy tube not present Mallampati: I. TM distance: >3 FB. Neck ROM: full ROM without neurological symptoms. Mouth opening: adequate. Short neck: no. Thick neck: no DENTAL Dental findings: teeth intact. Additional exam findings: yes. CARDIOVASCULAR Normal cardiovascular observations. Rhythm: regular Rate: normal PULMONARY Normal pulmonary observations. Breath sounds clear to auscultation. II - ANESTHESIA PLAN ASA Score: 1 Anesthetic Plan: general Airway type: ETT The patient is not a current smoker. NPO Status: adequate Monitoring plan: standard ASA. Postoperative analgesic plan: parenteral or oral opioids. Anesthetic Risks, Benefits, Alternatives, Personnel Discussed. Consent obtained from: patient.Patient / Surrogate agrees to blood products: Yes Significant changes in the patient condition since the History and Physical, not otherwise documented in primary service progress note: no. Potential Anesthesia issues that may suggest increased risk of complications or contraindication to planned procedure: none. Vitals Value Taken Time BP 111/71 04/27/21 1029 Pulse 78 04/27/21 1029 Resp 18 04/27/21 1029 Temp 36.5 ?C (97.7 ?F) 04/27/21 1029 SpO2 98 % 04/27/21 1029 Facility-Administered Medications as of 04/27/2021 Medication Dose Route Frequency - lactated ringers iv infusion 5-30 mL/hr INTRAVENOUS CONTINUOUS - ceFAZolin iv piggyback 2 g in D5W (iso-osmotic) 100 mL (ANCEF) 2 g INTRAVENOUS Pre-Op Once - acetaminophen 1,000 mg tab(s) (TYLENOL) 1,000 mg ORAL ONCE - promethazine 12.5 mg tab(s) (PHENERGAN) 12.5 mg ORAL Pre-Op Once Outpatient Medications as of 04/27/2021 Medication Sig - omeprazole (PRILOSEC) 40 mg capsule Take 40 mg by mouth once daily. - XULANE 150-35 mcg/24 hr patch APPLY 1 PATCH TOPICALLY ONCE A WEEK - ergocalciferol 50,000 unit capsule (VITAMIN D2, DRISDOL) Take 1 capsule by mouth one time a week. I have interviewed and examined the patient. I have reviewed the medical record and/or the pre-anesthesia evaluation, pertinent labs, and test results. This contains updated information obtained within 48 hours of Surgery/Procedure. SIGNATURE: Sherrie Naranjo MD PATIENT NAME: Lana Tran DATE: April 27, 2021 TIME: 10:36 AM CSN: [id number] [facility] NURSING PROGon 04-27-2021 NURSING PROG HNO ID: [id number] Author: Carmen Alvarez RN Service: Nursing Author Type: Registered Nurse Type: Nursing Progress Note Filed: 04/27/2021 3:13 PM Note Text: 1440 pt to Phase 2 in PACU. Report from Guicho KOENIG. Pt resting, awakes to VS briefly. DANY TCx4. Lap sites DANDI. PIV DANDI. VSS no s/sx of distress. 1500 pt states she would like to d/c to home. Pt denies nausea. PIV d/c'd drsg on. Dresses with mother @ BS. 1510 pt d/c'd to home. [facility] NURSING PROG HNO ID: [id number] Author: Guicho Suarez RN Service: Nursing Author Type: Registered Nurse Type: Nursing Progress Note Filed: 04/27/2021 2:08 PM Note Text: Pt reports dry mouth and sore throat. Taking sips po fluids . Pain 5/10. Pt states she could not take a po pill. Given fentanyl 50mcg iv x1 . Pt placed on pulse ox at bedside [facility] OPERATIVE NOon 04-27-2021 OPERATIVE NO HNO ID: [id number] Author: Emiliano Jalloh MD Service: General Surgery Author Type: Physician Type: Operative Report Filed: 04/27/2021 11:49 AM Note Text: OPERATIVE/PROCEDURE REPORT LOG ID: [id number] SURGERY/PROCEDURE DATE: 04/27/2021 INCISION/PROCEDURE START TIME: 11:05 AM INCISION CLOSE/PROCEDURE END TIME: 11:42 AM SURGEON(S)/PROCEDURALI ST(S) AND EMERGENCY DEPT TECH(S): Surgeon(s) and Role: * Emiliano Jalloh MD - Primary Nurse Practitioner: Nano Dias APRN.[facility] Registered Nurse Compliance Tester: Verónica Rudolph RN SURGERY/PROCEDURE(S): Laparoscopic cholecystectomy ANESTHESIA: General SURGERY/PROCEDURE DETAILS: Patient was brought in the operating room. Placed in the supine position. Under excellent general anesthetic the abdomen was sterilely prepped draped in usual fashion. Local was injected infraumbilically. Dissection was carried down to the fascia. The fascia was grasped with a Ruben. Varies needle was placed inside the abdomen. The abdomen was insufflated to 15 torr. A 10/12 trocar was placed without difficulty. Patient was placed in the head up and rotated to the left position. A subxiphoid #5 trochars placed, inferior to this another #5 trochars placed, laterally a #5 trocar was placed. All these under direct visualization without injury to underlying structures. Fundus of the gallbladder was grasped in a cephalad direction and the infundibulum was grasped and retracted laterally. Patient had moderate amount of adhesions which I dissected free from the gallbladder with electrocautery. I dissected out the cystic duct. Placed hemoclips proximally and distally and ligated the duct. Identified the cystic artery placed hemoclips proximally and distally and ligated the artery. Deliver the gallbladder from the gallbladder bed with use of electrocautery. Had no spillage of bile or stones. Reinspected the abdomen had good pneumostasis on the liver bed abdomen was deflated trochars were removed good in the stasis was noted. Fascia the umbilical port was closed with a 0 Vicryl. Skin incisions were closed with subcuticular stitches of 4-0 Monocryl. Steri-Strips were applied sterile dressings were applied and the patient tolerated the procedure well. Verónica Rudolph was my gallery assistant. She assisted with retraction, visualization and performed skin closure. No additional surgeons or qualified residents were available. PRE-OP/PRE-PROCEDURE DIAGNOSIS: Cholelithiasis POST-OP/POST-PROCEDURE DIAGNOSIS: Same as Preop ESTIMATED BLOOD LOSS: < 25 mls SPECIMENS: Gallbladder IMPLANTABLE DEVICES: None DRAINS: None COMPLICATIONS: None PARTICIPATION IN SURGERY/PROCEDURE: I/primary surgeon/proceduralist performed the procedure with assistance. SIGNATURE: Emiliano Jalloh III, MD PATIENT NAME: Lana Tran DATE: April 27, 2021 TIME: 11:38 AM Normal [facility] SURGICAL PATHOLOGYon 021 SURGICAL PATHOLOGY Specimen originated from [facility] Specimen #: [id number] Submitting Physician: Emiliano Jalloh M.D. FINAL DIAGNOSIS Gallbladder, cholecystectomy - Chronic cholecystitis with cholelithiasis and cholesterolosis. KAN MCDOWELL MD (Electronic Signature) _ SPECIMEN SUBMITTED A: GALLBLADDER CLINICAL DATA CALCULUS OF GALLBLADDER WITH CHRONIC CHOLECYSTITIS WITHOUT OBSTRUCTION, LMP: HCG NEGATIVE; LAPAROSCOPIC CHOLECYSTECTOMY GROSS DESCRIPTION A. Received in formalin labeled gallbladder is a specimen consisting of a gallbladder measuring 7.8 x 3.5 x 3.5 cm. A perforation is not present. The lumen contains bile. The serosal surface is green, smooth and glistening. The wall of the specimen measures 0.1 cm in thickness. Multiple calculi are present with the admixed type and range in size from 0.1 to 0.2 cm in greatest dimension. A calculus is not impacted in the cystic duct. The mucosal surface is bile stained. Professor Of Marketing sections are submitted in formalin in one cassette. KVB/kr 04/28/2021 [place] [address] Date of Report: 05/03/2021 Date of Procedure: 04/27/2021 Date of Receipt: 04/27/2021 Submitted by: Emiliano Jalloh M.D. Location: [facility] Diagnostic interpretation performed at [place] [address]. [facility] Number: [id number] [facility] HISTORY PHYSICALon HISTORY PHYSICAL HNO ID: [id number] Author: Edda Garcia PA-C Service: ? Author Type: Physician Video Tape Editor Type: HANDP Filed: 04/25/2021 2:04 PM Note Text: PREANESTHESIA CONSULT CLINIC TELEHEALTH VISIT Patient has been identified by name and date of : Yes This is a virtual visit using [employer] video visit. It require patient-provider interaction for the medical decision making as documented below. Reason for contact: PACC visit Accompanied by: Self Scheduled Surgery: lap cholecystectomy Subjective CHIEF COMPLAINT: Patient presents with: Anesthesia Consult: gallbladder issues HPI: This is a 31 year old female who presents with upper gi issues, N/V Triggered by certain foods, spicy, greasy. ACTIVE PROBLEM LIST Pilonidal Cyst Without Abscess Goiter PAST MEDICAL HISTORY Diagnosis Date - Low vitamin D level - Pilonidal cyst - PONV (postoperative nausea and vomiting) PAST SURGICAL HISTORY Procedure Laterality Date - EGD W/O BRSH SPEC VARICIES INJ 03/24/2021 - INCISION AND DRAINAGE OF WOUND (IANDD) HX 10/2015 pilonidal - PAST SURGICAL HISTORY OF 10/24/2016 removed pilonidal cyst FAMILY HISTORY Problem Relation Age of Onset - Thyroid Mother - Heart Paternal Grandmother - COPD Paternal Grandmother - Heart Paternal Grandfather Social History Tobacco Use - Smoking status: Never Smoker - Smokeless tobacco: Never Used Vaping Use - Vaping Use: Never used Substance Use Topics - Alcohol use: Yes Alcohol/week: 0.0 standard drinks Comment: occasional glass of wine - Drug use: No ALLERGIES No Known Allergies MEDICATIONS: Current Outpatient Medications Medication Sig - omeprazole (PRILOSEC) 40 mg capsule Take 40 mg by mouth once daily. - ergocalciferol 50,000 unit capsule (VITAMIN D2, DRISDOL) Take 1 capsule by mouth one time a week. - XULANE 150-35 mcg/24 hr patch APPLY 1 PATCH TOPICALLY ONCE A WEEK No current facility-administered medications for this visit. REVIEW OF SYSTEMS: Pain Assessment: General: No weight loss, malaise or fevers. Neuro: No history of TIA's, stroke, MAINFRAME CONSULTANT tumor, impaired sensorium, hemiplegia, paraplegia or quadraplegia. No neurological symptoms or problems. Respiratory: No history of current cough or dyspnea, or pneumonia in the past 6 weeks. No history of respiratory/pulmonary symptoms or problems. Cardiovascular: No history of HTN requiring medication, no history of angina, CHF, ME, cardiac surgery or stents. Denies rest pain, gangrene or revascularization/ampu tation for PVD. No history of cardiovascular symptoms or problems. GI: See HPI : No history of dysuria, frequency or incontinence,, stones or chronic kidney disease NETWORK PRICING CONSULTANT: Negative for abnormal vaginal bleeding, abnormal vaginal discharge. : Denies, Patient's last menstrual period was 03/13/2017 (exact date). Endocrine: No history of diabetes. Has not taken steroids within the past 30 days. No history of endocrinological symptoms or problems. Hematology: No history of bleeding or clotting disorder. Pt is not taking anti-coagulation or platelet medications. No history of hematological symptoms or problems. Oncology: No history of CA metastasis, chemo within 30 days, or radiotherapy within 90 days. Has not lost 10% of body wt in 6 months. No history of oncological symptoms or problems. Psych: No history of psychiatric symptoms or problems. Musculoskeletal: Negative for joint pain or swelling, back pain or muscle pain. Skin: Negative for lesions, rash and itching. Objective PHYSICAL EXAM: Ht 5' 4 (1.63m) Wt 178 lb (80.7kg) LMP 03/13/2017 BMI 30.54 kg/(m2). VIDEO EXAM: (if completed, performed via video enabled technology) GENERAL: alert and appropriate, in no distress, well-hydrated, well nourished and happy, smiling, interactive OROPHARYNX: moist mucus membranes NECK: full ROM, no cervical LNs noted and thyroid without tenderness or obvious enlargement/mass RESPIRATORY: breathing non-labored and no grunting/flaring/retra ctions CHEST: equal chest rise with normal respiratory effort HEART: carotid pulse intact, noted reg rhythm ABdomen- soft nontender Diagnostic tests reviewed for today's visit: No new labs or tests Impression/Recommendat ions ASSESSMENT: Assessment: There is no known pertinent medical condition which may affect guy-operative course METS: Do yardwork, such as raking leaves, weeding,or pushing a power mower (4.50 METs) Climb a flight of stairs or walk up a hill (5.50 METs) Run a short distance (8.00 METs) Patient denies any chest pain or undue shortness of breath with the above physical activity. ASA Class: 1 ANESTHESIA FINDINGS: Intubation History: No history of difficult intubation Significant Anesthesia Considerations: None Airway Exam: General: Normal appearance Mallampati Score is CLASS II ULBT: Class I - Lower incisors can bite the upper lip above the patricia line Neck: (more content not included)... Normal [facility] Rima 04-05-2021 [facility] LANA TRAN ([id number]) 1990 F Date Time Provider Department 04/05/21 EMILIANO JALLOH During your visit today, we recorded the following information about you: Sahara Bird Pss 04/05/2021 12:30 PM Signed Patient called stating she is ready to schedule surgery to remove gallbladder. Please call patient to schedule. Thank you. Omari Nunez 04/08/2021 3:09 PM Signed 04-27-2021 Lap TiaraPatric Nunez Allergies As of Date: 04/05/2021 (No Known Allergies) Date Reviewed: 03/31/2021 Reviewed by: Sanaz Ruiz RN - Fully Assessed Reason for Visit: 04-27-2021 Mechelle Whelan [Other] Prescriptions as of 04/20/2021 - omeprazole (PRILOSEC) 40 mg capsule Take 40 mg by mouth once daily. - ergocalciferol 50,000 unit capsule (VITAMIN D2, DRISDOL) Take 1 capsule by mouth one time a week. - XULANE 150-35 mcg/24 hr patch APPLY 1 PATCH TOPICALLY ONCE A WEEK Problem List As Of Date 04/05/2021 Noted Resolved Pilonidal cyst without abscess [L05.91] 05/05/2016 Epigastric pain [R10.13] 03/24/2021 03/24/2021 Encounter Status:Closed by BIRD LIMA SAHARA on 04/20/21 [facility] CNOVon 03-31-2021 CNOV Office Visit (GENSWS ) LANA TRAN ([id number]) 1990 F Date Time Provider Department 03/31/21 4:10 PM EMILIANO JALLOH During your visit today, we recorded the following information about you: Temperature Pulse Blood pressure Weight 98.1 degrees 76/minute 102/60 83.4 kg Emiliano Jalloh III, MD 04/05/2021 10:59 AM Signed Subjective: Patient is status post EGD completed on 03/25/2021. Biopsy of the stomach did not show any signs of H. pylori there is no signs of any ulcerations. Patient states that she still having some epigastric discomfort. Objective:Blood pressure 102/60, pulse 76, temperature 36.7 ?C (98.1 ?F), weight 83.4 kg (183 lb 12.8 oz), last menstrual period 03/22/2017, SpO2 99 %. Abdomen is soft and nontender Assessment:Epigastric pain (primary encounter diagnosis) Calculus of gallbladder with chronic cholecystitis without obstruction Plan: I have offered the patient a laparoscopic cholecystectomy with her the present time she would like to think about this prior to having any surgeries done. She will be getting back in contact with me when she would like to have the surgery performed. Referring Provider: EMILIANO JALLOH [[id number]] Allergies As of Date: 03/31/2021 (No Known Allergies) Date Reviewed: 03/31/2021 Reviewed by: Sanaz Ruiz RN - Fully Assessed Reason for Visit: Follow Up [171] Cmt: review EGD results Primary Visit Diagnosis:Epigastric pain [R10.13] Other Visit Diagnosis:Calculus of gallbladder with chronic cholecystitis without obstruction [K80.10] Prescriptions as of 04/05/2021 - omeprazole (PRILOSEC) 40 mg capsule Take 40 mg by mouth once daily. - ergocalciferol 50,000 unit capsule (VITAMIN D2, DRISDOL) Take 1 capsule by mouth one time a week. - XULANE 150-35 mcg/24 hr patch APPLY 1 PATCH TOPICALLY ONCE A WEEK Problem List As Of Date 03/31/2021 Noted Resolved Pilonidal cyst without abscess [L05.91] 05/05/2016 Epigastric pain [R10.13] 03/24/2021 03/24/2021 Letter Text Encounter Status:Closed by EMILIANO JALLOH on 04/05/21 [facility] HISTORY PHYSICALon HISTORY PHYSICAL HNO ID: [id number] Author: Emiliano Jalloh MD Service: General Surgery Author Type: Physician Type: HANDP Filed: 03/24/2021 10:58 AM Note Text: UPDATED HISTORY AND PHYSICAL EXAMINATION SERVICE DATE: 03/24/2021 SERVICE TIME: 10:58 AM PHYSICAL EXAM MUST BE COMPLETED ON ADMISSION The History and Physical (completed in the past 30 days) has been reviewed and the patient has been examined. The contents accurately reflect the patient's condition with the following additions or revisions since the HANDP was completed. Examination indicates no changes. This HANDP can be found in the Electronic Medical Record dated 03/15/21. SIGNATURE: Emiliano Jalloh III, MD PATIENT NAME: Lana Tran DATE: March 24, 2021 TIME: 10:58 AM Normal [facility] NURSING PROGon 03-24-2021 NURSING PROG HNO ID: [id number] Author: Winifred Palm RN Service: ? Author Type: Registered Nurse Type: Nursing Progress Note Filed: 03/24/2021 12:15 PM Note Text: Patient arrived to PACU, on left side, abdomen soft. Patient resting comfortably. Call light within reach. Winifred Palm RN Normal [facility] NURSING PROG HNO ID: [id number] Author: Manda Salguero RN Service: Nursing Author Type: Registered Nurse Type: Nursing Progress Note Filed: 03/24/2021 11:34 AM Note Text: { [facility] PRE-OP NURSING HAND OFF NOTE SBAR Hand off given to Odalys Winkler RN. Hand off was communicated verbally and at the patient's bedside and all questions were answered. Manda Salguero RN Normal [facility] SURGICAL PATHOLOGYon 021 SURGICAL PATHOLOGY Specimen originated from [facility] Specimen #: [id number] Submitting Physician: EMILIANO JALLOH ([id number]) FINAL DIAGNOSIS Stomach, antrum, biopsy - Gastric oxyntic-type mucosa with no diagnostic abnormality. STUART/klmarkos 03/25/2021 Paulie Smith M.D. (Electronic Signature) _ SPECIMEN SUBMITTED A: ANTRUM, BIOPSY CLINICAL DATA EPIGASTRIC PAIN, NAUSEA, LMP: N/A H/H GROSS DESCRIPTION A. Received in formalin is one piece of hernandez, soft tissue measuring 0.6 x 0.3 x 0.1 cm. Totally submitted in one cassette. Gross examination performed at [facility], [address] [place] [address] FFS 03/24/2021 9:10:47 PM Date of Report: 03/25/2021 Date of Procedure: 03/24/2021 Date of Receipt: 03/24/2021 Submitted by: EMILIANO JALLOH ([id number]) Location: [facility] Diagnostic [place] [address]. CLIA Number: [id number] Normal [facility] US ABD RIGHT UPPER QUADRANTo n 03-17-2021 US ABD RIGHT UPPER QUADRANT * * *Final Report* * * DATE OF EXAM: Mar 17 2021 11:59AM WRU [id number] - US ABD RIGHT UPPER QUADRANT / PROCEDURE REASON: multiple diagnoses * * * * Physician Interpretation * * * * EXAM TITLE: US ABD RIGHT UPPER QUADRANT HISTORY: Epigastric pain. TECHNIQUE: Sonography of the right upper quadrant was performed. Images were obtained and stored in a permanent archive. MQ: [id number] COMPARISON: None. RESULT: Limitations: Bowel gas. Pancreas: Not seen, likely due to overlying bowel gas. Liver: Echotexture: Homogeneous Echogenicity: Normal Surface contour: Smooth Lesions: None. Biliary: No intrahepatic biliary duct dilation. CBD: 4 mm in diameter. Gallbladder: Normal caliber -Contents: Tiny stones seen in the gallbladder neck. Sludge also visualized. -Wall: 2 mm in thickness -Other: Negative sonographic Szymanski's sign. Right Kidney: Within normal limits, measuring 10.7 cm in length. Ascites: None. IMPRESSION: Gallbladder stones and sludge. Pancreas not visualized. Match Marker: CLAUDE Transcribe Date/Time: Mar 17 2021 12:47P Dictated by : KELSI LUONG MD This examination was interpreted and the report reviewed and electronically signed by: KELSI LUONG MD on Mar 17 2021 12:50PM EST [id number] Normal [facility] CNOVon 03-15-2021 CNOV Office Visit (SOLO ) LANA TRAN ([id number]) 1990 F Date Time Provider Department 03/15/21 8:40 AM EMILIANO JALLOH During your visit today, we recorded the following information about you: Temperature Pulse Respiration Blood pressure 98 degrees 92/minute 15/minute 119/59 Weight 83.9 kg Narcisa Weeks RN 03/15/2021 9:30 AM Signed New patient. Visit for EGD consult. Patient is a referral from Dr. Jones. Patient has been having GI upset, diarrhea, extreme nausea without vomiting and stomach cramping X 1 year. PCP placed patient on omeprazole without much relief. Episodes happen after eating. Patient report episodes has worsened and more frequent, she is no longer able to eat things that didn't bother her 1 month ago. LIBERTY Polk RN 03/15/2021 9:06 AM Signed REVIEW OF SYSTEMS: General: The patient denies fatigue, denies weight loss, denies weight gain, denies feeling hot, and denies feelings of cold. Eyes: The patient denies glaucoma, denies eye injury/surgery, wears glasses or contacts. Ear/Nose/Throat: The patient denies allergies, denies hayfever, denies ear infections, and denies bloody noses. Cardiovascular: The patient NOTES chest pain, denies heart disease, denies high blood pressure,denies cardiac stent, denies prior heart attack, denies irregular heart beat, denies high cholesterol, denies poor circulation, denies heart failure, other cardiac issues, denies claudication, denies cold feet, denies peripheral arterial stent. Respiratory: The patient denies tuberculosis, denies pneumonia, denies frequent cough, denies pulmonary embolism, denies shortness of breath, and denies coughing up blood. Gastrointestinal: The patient denies difficulty swallowing, denies acid reflux, denies ulcers, denies vomiting, denies jaundice/hepatitis, denies gallbladder problems, denies black or tarry stools, denies hemorrhoids, denies bleeding from rectum, denies diverticulitis, denies constipation, NOTES diarrhea, denies loss of stool control, and denies hernias. Kidney/Bladder: The patient denies kidney stones, denies urine infections, and denies bloody urine. Skin: The patient denies a history of skin cancer, denies bleeding/changing moles, and denies a history of skin rash. Neurologic: The patient denies a history of epilepsy/convulsions, denies headaches, denies head/spinal injuries, and denies stroke/TIA. Psychiatric: The patient denies psychiatric medications, denies depression, and denies voices, denies substance abuse. Endocrine: The patient denies thyroid disorders, denies diabetes, and denies hormonal problems. Hematologic: The patient denies a history of bruising, denies bleeding, and denies anemia, denies blood clots. Infections: The patient denies a history of measles and mumps, denies rheumatic fever, and denies sexually transmitted diseases. Musculoskeletal: The patient denies back pain/injury, denies back problems, denies sciatica, denies knee/foot trouble, denies arthritis, or denies gout. When was patient's last Mammogram screening? NEVER Last Pelvic exam: 11/18/20 Last Colonoscopy: Never Denies any complications related to prior anesthesia LIBERTY Polk III, MD 03/15/2021 9:30 AM Signed HISTORY AND PHYSICAL Lana Flood [place] 1990 REFERRING PHYSICIAN: Emiliano Jalloh MD CHIEF COMPLAINT: New Patient and Consult HPI: The patient is a 30 year old female referred for endoscopy. Patient has been having difficulty with epigastric discomfort. She states in 2019 she started having increasing nausea diarrhea epigastric pain. Was starting to take a PPI but she was still getting sick this was primarily at nighttime. She has now been noticing that she is having greasy food aversion. She is not having any vomiting. She has had increasing stool function. But no blood in her stool. She has no family history of Crohn's disease ulcerative colitis or irritable bowel disease. She has not had any imaging studies as of yet.. Patient states that when these episodes happen she feels very sore in the epigastric area on both sides. Lot of cramping and a lot of rumbling in her abdomen. She has not been complaining of any fevers or chills. Lana has undergone prior endoscopy. The patient is being seen by me today at the request of Dr. Monica Jones, , DO for my opinion and advice regarding Epigastric pain (primary encounter diagnosis) Nausea Diarrhea, unspecified type. PAST MEDICAL HISTORY Diagnosis Date - Low vitamin D level - Pilonidal cyst PAST SURGICAL HISTORY Procedure Laterality Date - INCISION AND DRAINAGE OF WOUND (IANDD) HX 10/2015 pilonidal - PAST SURGICAL HISTORY OF 10/24/2016 removed pilonidal cyst Current Outpatient Medications Medication Sig - omeprazole (PRILOSEC) 40 mg capsule Take 40 mg b (more content not included)... Normal [facility] Rima 03-15-2021 [facility] LANA TRAN Remigio ([id number]) 1990 F Date Time Provider Department 03/15/21 EMILIANO JALLOH During your visit today, we recorded the following information about you: Omari Nunez 03/15/2021 11:22 AM Signed 03-24-2021 [facility] SURGICAL PHONE NOTE Date of Procedure/Surgery: 03-24-2021 Procedure/Surgery Type: EGD ? SEDATION:Conscious Sedation Location of Planned Procedure/Surgery: ? [facility] Surgery/Procedure Ordered: Yes COVID Testing Required: (FOR MAC CASES AND ASC PROCEDURES OTHER THAN COLON AND EGD): No Pre-Op Clearance Needed: No Prep Ordered:N/A Prep Instructions given:Yes: Given in the office. Referral Completed:PAVE to complete. Patient Diabetic:No. Medication Considerations: Patient on blood Thinners: No Any other meds that need to be held: No Pacemaker or Defibrillator:No Patient/Family Informed of above information and given directions regarding location/arrival: Yes: Patient Transportation Considerations: No Other Important Information: No Any physical limitations: No Any cognitive limitations: No Digital Cartographic Technician/Marketing Summer Intern required: No Communication Limitations: No Emiliano Jalloh III, MD 03/22/2021 1:20 PM Signed ----- Message from Jay Vazquez LPN sent at 03/16/2021 11:52 AM EDT ----- Regarding: FW: EGD order needed for 03/24 ----- Message ----- From: Dee Lima Sent: 03/16/2021 8:00 AM EDT To: [facility] General Surgery Pool Subject: EGD order needed for 03/24 Good Morning EGD order needed for 03/24 Emiliano Jalloh III, MD 03/22/2021 1:22 PM Signed Please check to make sure I put the proper EGD order and Allergies As of Date: 03/15/2021 (No Known Allergies) Date Reviewed: 03/15/2021 Reviewed by: Narcisa Weeks RN - Fully Assessed Reason for Visit: 03-24-2021 EGD [Other] Primary Visit Diagnosis:Epigastric pain [R10.13] Other Visit Diagnoses:Nausea [R11.0] Diarrhea, unspecified type [R19.7] Order(s):EGD W/ POP GEN ANES [[id number]] Order #: [id number] FUTURE EGD W/ POP GEN ANES [[id number]] Order #: [id number]. #[id number] ION-ENDO Prescriptions as of 03/28/2021 - omeprazole (PRILOSEC) 40 mg capsule Take 40 mg by mouth once daily. - ergocalciferol 50,000 unit capsule (VITAMIN D2, DRISDOL) Take 1 capsule by mouth one time a week. - XULANE 150-35 mcg/24 hr patch APPLY 1 PATCH TOPICALLY ONCE A WEEK Problem List As Of Date 03/15/2021 Noted Resolved Pilonidal cyst without abscess [L05.91] 05/05/2016 Encounter Status:Closed by OMARI NUNEZ on 03/28/21 [facility] HOSP 03-15-2021 HOSP Patient:Lana Tran MRN: Height:5' 3(1.6 m) Weight:184 lb 15.5 oz (83.9 kg) Outpatient Medications as of 03/24/21: omeprazole (PRILOSEC) 40 mg capsule ergocalciferol 50,000 unit capsule (VITAMIN D2, DRISDOL) XULANE 150-35 mcg/24 hr patch Admission/Clinic Administered Medications as of 03/24/21: Patient has no admission medications. Problem List: Pilonidal cyst without abscess [L05.91] Epigastric pain [R10.13] Allergies: No Known Allergies Date Verified:03/24/21 Lab Values No results within the last 30 days for the following basenames: K[facility]CT [facility] Omari Heidi 03/15/2021 11:22 AM Signed 03-24-2021 EGD [facility] SURGICAL PHONE NOTE Date of Procedure/Surgery: 03-24-2021 Procedure/Surgery Type: EGD ? SEDATION:Conscious Sedation Location of Planned Procedure/Surgery: ? [facility] Surgery/Procedure Ordered: Yes COVID Testing Required: (FOR MAC CASES AND ASC PROCEDURES OTHER THAN COLON AND EGD): No Pre-Op Clearance Needed: No Prep Ordered:N/A Prep Instructions given:Yes: Given in the office. Referral Completed:PAVE to complete. Patient Diabetic:No. Medication Considerations: Patient on blood Thinners: No Any other meds that need to be held: No Pacemaker or Defibrillator:No Patient/Family Informed of above information and given directions regarding location/arrival: Yes: Patient Transportation Considerations: No Other Important Information: No Any physical limitations: No Any cognitive limitations: No Digital Cartographic Technician/Marketing Summer Intern required: No Communication Limitations: No Emiliano Jalloh III, MD 03/22/2021 1:20 PM Signed ----- Message from Jay Vazquez LPN sent at 03/16/2021 11:52 AM EDT ----- Regarding: FW: EGD order needed for 03/24 ----- Message ----- From: Dee Izquierdo Pss Sent: 03/16/2021 8:00 AM EDT To: [facility] General Surgery Pool Subject: EGD order needed for 03/24 Good Morning EGD order needed for 03/24 Emiliano Jalloh III, MD 03/22/2021 1:22 PM Signed Please check to make sure I put the proper EGD order and Progress Notes ([facility]): Narcisa Weeks RN 03/15/2021 9:30 AM Signed New patient. Visit for EGD consult. Patient is a referral from Dr. Jones. Patient has been having GI upset, diarrhea, extreme nausea without vomiting and stomach cramping X 1 year. PCP placed patient on omeprazole without much relief. Episodes happen after eating. Patient report episodes has worsened and more frequent, she is no longer able to eat things that didn't bother her 1 month ago. LIBERTY Polk RN 03/15/2021 9:06 AM Signed REVIEW OF SYSTEMS: General: The patient denies fatigue, denies weight loss, denies weight gain, denies feeling hot, and denies feelings of cold. Eyes: The patient denies glaucoma, denies eye injury/surgery, wears glasses or contacts. Ear/Nose/Throat: The patient denies allergies, denies hayfever, denies ear infections, and denies bloody noses. Cardiovascular: The patient NOTES chest pain, denies heart disease, denies high blood pressure,denies cardiac stent, denies prior heart attack, denies irregular heart beat, denies high cholesterol, denies poor circulation, denies heart failure, other cardiac issues, denies claudication, denies cold feet, denies peripheral arterial stent. Respiratory: The patient denies tuberculosis, denies pneumonia, denies frequent cough, denies pulmonary embolism, denies shortness of breath, and denies coughing up blood. Gastrointestinal: The patient denies difficulty swallowing, denies acid reflux, denies ulcers, denies vomiting, denies jaundice/hepatitis, denies gallbladder problems, denies black or tarry stools, denies hemorrhoids, denies bleeding from rectum, denies diverticulitis, denies constipation, NOTES diarrhea, denies loss of stool control, and denies hernias. Kidney/Bladder: The patient denies kidney stones, denies urine infections, and denies bloody urine. Skin: The patient denies a history of skin cancer, denies bleeding/changing moles, and denies a history of skin rash. Neurologic: The patient denies a history of epilepsy/convulsions, denies headaches, denies head/spinal injuries, and denies stroke/TIA. Psychiatric: The patient denies psychiatric medications, denies depression, and denies voices, denies substance abuse. Endocrine: The patient denies thyroid disorders, denies diabetes, and denies hormonal problems. Hematologic: The patient denies a history of bruising, denies bleeding, and denies anemia, denies blood clots. Infections: The patient denies a history of measles and mumps, denies rheumatic fever, and denies sexually transmitted diseases. Musculoskeletal: The patient denies back pain/injury, denies back problems, denies sciatica, denies knee/foot trouble, denies arthritis, or denies gout. When was patient's last Mammogram screening? NEVER Last Pelvic exam: 11/18/20 Last Colonoscopy: Never Denies any compli (more content not included)... Normal [facility] CNOVon 02-17-2021 CNOV Office Visit (WSTR ) LANA TRAN ([id number]) 1990 F Date Time Provider Department 02/17/21 3:45 PM ALEXANDER INTERIANO [facility] During your visit today, we recorded the following information about you: Temperature Pulse Respiration Blood pressure 99.1 degrees 79/minute 16/minute 128/80 Weight 84.8 kg Alexander Interiano MD 02/17/2021 5:05 PM Signed Patient presents with: left shoulder pain: x several weeks neck and chest hurt some also HPI: Left shoulder pain: Duration: 2 weeks, worse the last week Location: Left shoulder (anterior, posterior, upper chest), Character: Dull, intermittent for hours, constant the last 2 days (no pain currently) Radiation: Left neck Aggravating: Not bothered by head or arm movements, no brought on by activity Relieving: Tried stretching Pain relievers: none Associated: Occasional palpitations (chronic events and unchanged in frequency or character), recent nausea and diarrhea evaluation (triggered by spicy food), elevated triglycerides (improved on recent recheck, PGF ME <50yo. Pertinent negatives: Denies chest pain, shortness of breath, cough, fever, edema Elevated triglycerides. Had COVID-19 in July. Has not had vaccine. PAST MEDICAL HISTORY Diagnosis Date - Pilonidal cyst MEDICATIONS: omeprazole (PRILOSEC) 40 mg capsule Take 40 mg by mouth once daily. ergocalciferol 50,000 unit capsule (VITAMIN D2, DRISDOL) Take 1 capsule by mouth one time a week. XULANE 150-35 mcg/24 hr patch APPLY 1 PATCH TOPICALLY ONCE A WEEK ALLERGIES: ALLERGIES No Known Allergies VITALS: BP 128/80 Pulse 79 Temp 37.3 ?C (99.1 ?F) (Tympanic) Resp 16 Wt 84.8 kg (187 lb) LMP 09/21/2016 SpO2 98% BMI 33.13 kg/m? PHYSICAL EXAM: GEN: pleasant, no acute distress, alert HEENT: PERRL, EOMI, MMM NECK: supple, no lymphadenopathy, no thyromegaly, normal ROM without inducing symptoms HEART: regular rate, regular rhythm, no murmurs LUNGS: clear to auscultation, no wheezes or crackles, no increased WOB ABD: soft, non-distended, no masses palpated, non-tender EXT: no clubbing, no cyanosis, no edema, normal symmetric monofilament sensation in fingers SHOULDER: left. No deformity or sweling. Palpation of clavicle non-tender, AC joint non-tender, glenohumeral joint non-tender. ROM: normal. Impingement test: Negative. Supraspinatus (empty can test): Negative. Cross arm test: Negative. NEURO: Alert and oriented to person, place, and time. Normal strength. Normal gait. No tremor. ASSESSMENT/PLAN: 1. Acute pain of left shoulder - ICD9: 719.41, ICD10: M25.512 (primary diagnosis) 2. Left-sided chest pain - ICD9: 786.50, ICD10: R07.9 Low risk for coronary artery disease. Exam is normal. She is on a hormonal contraceptive patch. Rule out PE though pain is more focused in the shoulder than the chest. - D-DIMER stat. Patient agrees to go to the ER for further evaluation if abnormal. Her PCP's office told her the next available appointment was the end of March. She can have follow up in [facility] if unable to get in with another attempt. Patient will proceed to the ER with worsening pain, shortness of breath, palpitations, or exertion induced symptoms. Alexander Interiano MD Referring Provider: SELF [200] Allergies As of Date: 02/17/2021 (No Known Allergies) Date Reviewed: 02/17/2021 Reviewed by: Bree Hayden LPN - Fully Assessed Reason for Visit: left shoulder pain [Other] Cmt: x several weeks neck and chest hurt some also Primary Visit Diagnosis:Acute pain of left shoulder [M25.512] Other Visit Diagnosis:Left-sided chest pain [R07.9] Order(s):D-DIMER [SQDDMER] Order #: [id number] FUTURE Prescriptions as of 02/17/2021 Sig: OMEPRAZOLE 40 MG CAPSULE,GERARDO* Take 40 mg by mouth once amanda* ERGOCALCIFEROL (VITAMIN D2) 1* Take 1 capsule by mouth one t* XULANE 150 MCG-35 MCG/24 HR T* APPLY 1 PATCH TOPICALLY ONCE * Problem List As Of Date 02/17/2021 Noted Resolved Pilonidal cyst without abscess [L05.91] 05/05/2016 Medications Discontinued During This Encounter Prescriptions - oxyCODONE-acetaminophe n (PERCOCET) 5-325 mg tablet (Discontinued) Take 1 tablet by mouth every 4 hours as needed for up to 30 doses. - oxyCODONE-acetaminophe n (PERCOCET) 5-325 mg tablet (Discontinued) Take 1 tablet by mouth every 4 hours as needed. - ibuprofen (ADVIL) 200 mg tablet (Discontinued) Take 1-2 tablets by mouth every 2 hours as needed. FOR PAIN. Encounter Status:Closed by ALEXANDER INTERIANO on 02/17/[address] [facility] D dimeron 02-17-2021 D dimer Test sent to [facility]. Normal <[address] [facility] Comment on above: Result Comment: Acco unt Credited HIDE Vital Signs Date Time Vital Sign Value Performing Clinician Otis stiles 02-23-2025 08:44-0400 Body height 160.02 cm Denia Ramirez CELL LINER-C Work Phone: [facility] 02-23-2025 08:44-0400 Body mass index (BMI) [Ratio] 30.7 kg/m2 Denia Ramirez [employer] [employer] Work Phone: [facility] 02-23-2025 08:44-0400 Body weight 78.64 kg Denia Ramirez [employer]C Work Phone: [facility] 02-23-2025 08:44-0400 Diastolic blood pressure 77 mm[Hg] Denia Ramirez [facility]C Work Phone: [facility] 02-23-2025 08:44-0400 Systolic blood pressure 130 mm[Hg] Denia Ramirez [employer] [employer]C Work Phone: [facility] 11-29-2023 08:34-0400 Body height 160.[address] Monica Jones Work Phone: [facility] 11-29-2023 08:32-0400 Body mass index (BMI) [Ratio] 30.2 kg/m2 Dr. Monica Jones Work Phone: [facility] 11-29-2023 08:32-0400 Body weight 77.[address] Moncia Jones Work Phone: [facility] 11-29-2023 08:32-0400 Diastolic blood pressure 78 mm[Hg] Dr. Monica Jones Work Phone: [facility] 11-29-2023 08:32-0400 Systolic blood pressure 117 mm[Hg] Dr. Monica Jones Work Phone: [facility] Encounters Encounter Date Encounter Type Care Provider Facility Start: 02-26-2025 End: 02-26-2025 ambulatory Denia Ramirez [facility]C Work Phone: -[facility] Start: 02-26-2025 End: 02-26-[address] Shirley Gregg MD -Ultrasound [facility] Work Phone: Start: 02-26-2025 End: 02-26-2025 ambulatory [facility] Facility:[facility] Start: 02-23-2025 Encounter for gynecological examination (general) (routine) with abnormal findings Shirley Gregg [facility] Start: 02-23-2025 End: 02-23-[address] Shirley Gregg MD -[facility] Work Phone: Start: 02-23-2025 End: 02-23-[address] Shirley Gregg MD [facility] Start: 02-23-2025 End: 02-23-2025 ambulatory [facility] Work Phone: [facility] Work Phone: Start: 02-23-2025 End: 02-23-2025 ambulatory [facility] Facility:[facility] Start: 08-20-2024 Encounter for genera l adult medical examination with abnormal findings [facility] Start: 07-22-2024 End: 07-22-2024 ambulatory [facility] Facility:[facility] Start: 03-18-2024 End: 03-18-2024 ambulatory [facility] Facility:[facility] Start: 11-29-2023 End: 11-29-[address] Monica Jones Work Phone: [facility] Work Phone: Start: 11-29-2023 End: 11-29-[address] Monica Jones Work Phone: [facility]-Laboratory, Specimen Work Phone: Start: 11-29-2023 End: 11-29-[address] Monica Jones Work Phone: [facility] Work Phone: Start: 07-23-2023 End: 07-23-2023 ambulatory [facility] Work Phone: Start: 07-23-2023 End: 07-23-2023 Patient encounter procedure [facility]Ildefonso Wright [facility] Start: 07-14-2022 End: 07-14-2022 ambulatory [facility] Work Phone: Start: 07-14-2022 End: 07-14-2022 [facility] Procedures Date Procedure Procedure Detail Performing Clinician Start: 02-26-2025 US scan of thyroid Raiza MANCILLA Work Phone: Plan of Treatment Date Care Activity Detail Author Start: 02-23-2025 CBC W Auto Different ial panel - Blood [facility] Start: 02-23-2025 T4 free measurement [facility] Start: 02-23-2025 Thyroid stimulating hormone measurement [facility] Erythrocyte mean cor puscular volume determination [facility] Hematocrit [Volume F raction] of Blood [facility] Hemoglobin [Mass/volume] in Blood [facility] Leukocytes [#/volume] in Blood [facility] Mean corpuscular hem oglobin concentration determination [facility] Mean corpuscular hem oglobin determination [facility] Neutrophil count [facility] Neutrophil percent d ifferential count [facility] Platelets [#/volume] in Blood [facility] Red blood cell count [facility] Red cell distributio n width determination [facility] US Thyroid gland [facility] Payers Date Payer Category Payer Self-pay [id number] 2024 Unknown [id number] Private Health Insurance [id number] Unknown [facility] [id number] Unknown [id number] Unknown [id number] Unknown [id number] Unknown [id number] Unknown [id number] Social History Date Type Detail Facility Start: 11-21-2021 End: 11-29-2023 Tobacco smoking status NHIS Unknown if ever smoked [facility] Start: 1990 Sex Assigned At Female W [facility] Start: 11-29-2023 Tobacco smoking stat us NHIS Never smoked tobacco (finding) [facility] Clinical Notes 02-17-2021 to 02-27-2025 Note Date & Type Note Facility 02-27-2025 Radiology Diagnostic study note [facility] Imaging Services [address], [place] [address] Thyroid MR#: [id number] Acct: [id number] Name: LANA TRAN Rep #: [id number] : 1990 F 34 From: Aditya Andre MD PCP: LAURENT Vyas Status: REG CLI Study:Thyroid Date of Exam: 02/26/25 Exam# [id number] Ordering Dr: Shirley Hernandez MD PROCEDURE: THYROID 02/26/2025 REASON FOR EXAM: HISTORY OF GOITER TECHNIQUE: THYROID COMPARISON: March 14, 2018. FINDINGS: Right thyroid lobe size: 5.8 cm x 1.6 cm 1.5 cm Left thyroid lobe size: 4.8 cm 1.4 cm x 1.2 cm Isthmus: 0.18 cm Background parenchymal echotexture is heterogeneous Nodules: . Lobe: Left, Location: Midpole, Size: 2 mm x 4 mm x 1 mm cm, Stability: Stable Composition: Cystic or mostly cystic (+0) Echogenicity: Anechoic (+0) Margin: Smooth (+0) Shape: Wider than tall (+0) Echogenic Foci: None (+0) TI-RADS: 1 US/Thyroid IMPRESSION: Heterogeneous echotexture of both lobes of the thyroid. Stable 4 mm x 2 mm x 1 mm cyst in the midpole of the left lobe of the thyroid gland. RECOMMENDATION: Based on most suspicious nodule. Nodule size = largest diameter Only evaluate nodule if =>5 mm. Growth > 20% in 2 dimensions = worsening. Follow up to 4 nodules. Recommend biopsy for no more than 2 nodules. Reading Location: [id number] CC: LAURENT Ramirez; Dr. Shirley Gregg MD ~ Match Marker: Signed [facility] 02-23-2025 Evaluation note Diagnosis Onset Date Resolution Mastalgia acute February 23 8:41am Encounter for routine gynecological examination noneactive February 23, 2025 8:41am [facility] Work Phone: 1(439) 915-165406-23-2025 Progress [facility] [address] [place] [address], [address] [place] [address] OFFICE VISIT Date of Service: 02/23/25 MR#: [id number] Acct: [id number] Name: LANA TRAN Rep #: [id number] : 1990 Provider: Dr. 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 Is patient in pain?: Yes (right breast pain on and off) Allergies No Known Allergies Allergy (Verified 02/23/25 08:45) Medications ?Medication ?Instructions ?Recorded ?Confirmed ?Type cholecalciferol (vitamin D3) 10 10 mcg PO DAILY 02/23/25 History mcg (400 unit) capsule Xulane 150 mcg-35 mcg/24 hr 1 patch transdermal Q7D #3 ea 02/23/25 02/23/25 Rx transdermal patch (norelgestromin-ethin.estradiol) ferrous sulfate 325 mg (65 mg 325 mg PO QDAY 02/23/25 02/23/25 History iron) tablet Is last menstrual period known: Yes Last Menstrual Period: 02/02/25 Post menopausal: No Patient : No : No PFSH Medical History GERD (gastroesophageal reflux disease) Nodular goiter Surgical History S/P cholecystectomy Pilonidal cyst Family History Grandfather Myocardial infarction Diabetes Mother Thyroid disorder Grandfather Esophageal cancer Grandmother Arthritis Lung cancer Social History Smoking Status: Never smoker alcohol intake: current details: social substance use type: does not use caffeine: Yes what type of physical activity do you participate in: walking frequency: 1-2 times per week duration: 45-60 minutes/day seatbelt use: always do you feel safe at home: Yes 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 CO RIGHT INNER BRESAT pain intermittentlyfor the last few months no lumps may be chest wall, unsure. no family history no lumps or skin changes no discharge. Last PAP: 11/29/2023 - normal History of abnormal PAP: Last mammogram: not due History of abnormal mammogram: Colon cancer screening: not due Other preventative health care screenings: PCP [facility] Female Reproductive History Last Menstrual Period: 02/02/25 Cycle Length: 21-35 Bleeding Duration: 5 Questions: metorrhagia: No, sexually active: Yes, dyspareunia: No and PCB: No Menopausal Symptoms: No hot flashes, No night sweats, No weight change, No mood changes, No difficulty concentrating, No sleep problems and No change in libido ROS Const Constitutional: Reports as per HPI; Denies fatigue, increased appetite, poor appetite, night sweats, weight gain or weight loss Cardio Card: Denies chest pain Resp Resp: Denies cough or dyspnea GI GI: Reports as per HPI; Denies abdominal pain, bloating, constipation, nausea or vomiting : Reports as per HPI, vaginal discharge and other; Denies difficulty voiding, dysuria, hematuria, hot flashes, nipple discharge, pelvic pain, prolapsesymptoms, urinary frequency, urinary incontinence, urinaryurgency, vaginal dryness, vaginal odor orvaginal pruritus Skin Skin/Breast: Reports breast pain; Denies changing lesions, breast mass, breast skin changes or nipple discharge Psych Psych: Denies anxiety, change in libido, depression or difficulty concentrating Exam Const General: cooperative, healthy appearing, comfortable, no acute distress, well developed and well groomed [facility] Head: normal to inspection and normocephalic Ears: hearing grossly normal bilaterally and external ears normal Nose: external nose normal Face and sinus: normal facial exam Neck Neck: normal visual inspection, full ROM and no lymphadenopathy Thyroid: thyroid normal Chest Chest palpation & inspection: normal inspection of the chest Breast inspection: normal inspection of the breasts and normal inspection of theaxillae Breast palpation: normal palpation of the breasts, normal palpation of the axillae and no axillary lymphadenopathy Resp Effort & Inspection: normal respiratory effort GI Inspection: normal to inspection and non-distended Palpation: soft, no hepatosplenomegaly and no guarding General: bladder normal to palpation External Female Exam: normal external appearance, normal appearance of the urethra and no lesions Urethra: normal appearance of the urethra and normal palpation Speculum Exam - Vagina: normal appearance of the vagina and normal vaginal discharge Speculum Exam - Cervix: normal appearance of the cervix, no cervical discharge, no lesions and nontender Bimanual Exam- Vagina & Uterus: normal bimanual exam, uterine size normal, bladder normal to palpation, No tender, uterine mobility normal, consistency normal, non-tender and no cervical motion tenderness Bimanual Exam- Adnexa, other: normal adnexae, no masses and non-tender Skin General: no rashes or lesions noted Neuro General: patient alert, moves all extremities and no focal motor deficits Extrem General: normal to inspection and no pedal edema Psych Appearance: grossly normal Mental Status: mental status grossly normal Affect: normal affect Speech and Movement: speech and movement normal Attitude: cooperative Coding Level of Care Code Off vis,est,prev 18-39yrs Diagnoses Encounter for gynecological examination with abnormal finding Z01.411 Gynecological examination findings: abnormal findings PRESENT Mastalgia N64.4 Assessment and Plan Assessment and Plan (1) Encounter for routine gynecological examination: Qualifiers: Gynecological examination findings: abnormal findings PRESENT QualifiedCode(s): Z01.411 - Encounterfor gynecological examination (general) (routine) with abnormal findings (2) Mastalgia: Status: Acute Comment: supportive care reviewed Medications: Refilled Xulane 150-35 mcg/24 hr (norelgestromin-ethin.estradiol) apply once weekly for 3 weeks of a 4-week cycle 1 patch transdermal Q7D 3 [id number] NS Plan Cervical cancer screening: pap hpv up to date Breast cancer screening: clinical other health maintenance examination reviewed and orders placed if needed. Encouraged maintenance of a healthy weight and active lifestyle and handout given. Annual exam handout including recommendations for good health guidelines, Calcium/vitamin D recommendations, and basic screening information given. Problem list up to date, see problem list details for any additional plan information. Follow up in one year for annual health maintenance exam or sooner if needed. 02/23/25 0937 graciela PICKERING> Date _ Shirley Gregg MD Cosigner Signature: Date (if applicable) CC: ~ [facility]03-28-2024 NotePap Smear Specimen AdequacyMar 2023 9:53amComment.Satisfactory for evaluation. Endocervical and/or squamous metaplasticcells (endocervical component)are present.[facility] A#[id number] on above:Satisfactory for evaluation. Endocervical and/or squamous metaplasticcells (endocervical component)are present.05-10-2021 NoteHNO ID: [id number] Author: Olga Suarez PA-C Service: ? Author Type: Physician Video Tape Editor Type: Progress Notes Filed: 05/10/2021 9:48 AM Note Text: FOLLOW UP VISIT - CHOLECYSTECTOMY NAME: Lana Tran CLINIC NO.: [id number] DATE OF SERVICE: 05/10/2021 : 1990 REFERRING PHYSICIAN: Monica Jones DO, DO Lana is a patient I am following with Dr. Jalloh for a complaint of right upper quadrant pain. Dr. Jalloh performed a laparoscopic cholecystectomy on 04/27/21. Pathology demonstrated: FINAL DIAGNOSIS Gallbladder, cholecystectomy - Chronic cholecystitis with cholelithiasis and cholesterolosis. The patient currently notes no complaints. Her appetite has been good. She notes having less frequent bowel movements than usual, but admits to not eating normally yet as she is still nervous to eat much based on her preoperative symptoms. She states she has been drinking plenty of fluids. She denies fever, chills or abdominal pain. she does note some mild incisional discomfort. VITALS: Blood pressure 118/58, pulse 118, temperature 36.4 ?C (97.5 ?F), resp. rate 18, weight 80.8 kg (178 lb 3.2 oz), last menstrual period 04/18/2021, SpO2 98 %. On examination, the abdomen is benign. The incisions are healing well without signs of infection or inflammation. Assessment IMPRESSION: status post laparoscopic cholecystectomy, chronic cholecystitis and cholelithiasis PLAN: -OK to advance diet as tolerated -Miralax as needed and fluids, fiber to help regulate bowel movements If the patient notes any problems, she should contact me immediately. she may return to her regular activities as tolerated, with the exception of no lifting greater than 20 pounds for the next 3 weeks. The patient is to contact me immediately is she experiences any of her preoperative symptoms. We discussed that occasional right up quadrant symptoms similar to the preoperative complaints can occur in the first couple of weeks post operatively. If this persists beyond the first 2-3 weeks, they should contact our office. Diagnoses: (K80.10) Calculus of gallbladder with chronic cholecystitis without obstruction (primary encounter diagnosis) Return to Clinic: The patient is instructed to follow-up with me as needed. Olga Erick, PA-[facility]08-25-2021 NoteHNO ID: [id number] Author: Amina Hills APRN.THEATRICAL AGENT Service: Anesthesiology Author Type: Nurse Ruby Rails Developer Type: Anesthesia Procedure Notes Filed: 04/27/2021 11:00 AM Note Text: ANESTHESIOLOGY PROCEDURE NOTE Airway General Information Procedure Start Time/Medication Administration: 04/27/2021 10:51 AM Patient location during procedure: OR Timeout Performed Pre-procedure: timeout performed Consent Obtained: Yes Patient identity confirmed: arm band and patient Staffing THEATRICAL AGENT: Amina Hills APRN.THEATRICAL AGENT Indications and Patient Condition Preoxygenated: yes Difficult Mask: No Indications for airway management: anesthesia anesthesia circuit Method: sleep Cricoid Pressure: Yes Final Airway Details Final airway type: endotracheal airway Final Endotracheal Airway: ETT Cuffed: yes Successful intubation technique: direct laryngoscopy Blade: Héctor Blade size: #4 ETT size (mm): 7.0 Measurement (cm): 21 Placement verified by: capnometry Cormack-Lehane Classification: grade I - full view of glottis Number of attempts at approach: 1 Airway not difficult SIGNATURE: Amina Hills APRN.THEATRICAL AGENT PATIENT NAME: Lana Tran DATE: April 27, 2021 TIME: 10:59 AM CSN: [id number] NoteHNO ID: [id number] Author: Emiliano Jalloh MD Service: ? Author Type: Physician Type: Progress Notes Filed: 04/05/2021 10:59 AM Note Text: Subjective: Patient is status post EGD completed on 03/25/2021. Biopsy of the stomach did not show any signs of H. pylori there is no signs of any ulcerations. Patient states that she still having some epigastric discomfort. Objective:Blood pressure 102/60, pulse 76, temperature 36.7 ?C (98.1 ?F), weight 83.4 kg (183 lb 12.8 oz), last menstrual period 03/22/2017, SpO2 99 %. Abdomen is soft and nontender Assessment:Epigastric pain (primary encounter diagnosis) Calculus of gallbladder with chronic cholecystitis without obstruction Plan: I have offered the patient a laparoscopic cholecystectomy with her the present time she would like to think about this prior to having any surgeries done. She will be getting back in contact with me when she would like to have the surgery performed.[facility]07-22-2021 NoteHNO ID: [id number] Author: Winifred Palm RN Service: ? Author Type: Registered Nurse Type: Nursing Progress Note Filed: 03/24/2021 12:16 PM Note Text: Patient sitting up in bed tolerating snack and drink without problems. Winifred Palm [facility]07-[facility]-2021 NoteHNO ID: [id number] Author: Emiliano Jalloh MD Service: ? Author Type: Physician Type: Progress Notes Filed: 03/15/2021 9:30 AM Note Text: HISTORY AND PHYSICAL Lana Tran 1990 REFERRING PHYSICIAN: Emiliano Jalloh MD CHIEF COMPLAINT: New Patient and Consult HPI: The patient is a 30 year old female referred for endoscopy. Patient has been having difficulty with epigastric discomfort. She states in 2019 she started having increasing nausea diarrhea epigastric pain. Was starting to take a PPI but she was still getting sick this was primarily at nighttime. She has now been noticing that she is having greasy food aversion. She is not having any vomiting. She has had increasing stool function. But no blood in her stool. She has no family history of Crohn's disease ulcerative colitis or irritable bowel disease. She has not had any imaging studies as of yet.. Patient states that when these episodes happen she feels very sore in the epigastric area on both sides. Lot of cramping and a lot of rumbling in her abdomen. She has not been complaining of any fevers or chills. Lana has undergone prior endoscopy. The patient is being seen by me today at the request of Dr. Monica Jones, , DO for my opinion and advice regarding Epigastric pain (primary encounter diagnosis) Nausea Diarrhea, unspecified type. PAST MEDICAL HISTORY Diagnosis Date - Low vitamin D level - Pilonidal cyst PAST SURGICAL HISTORY Procedure Laterality Date - INCISION AND DRAINAGE OF WOUND (IANDD) HX 10/2015 pilonidal - PAST SURGICAL HISTORY OF 10/24/2016 removed pilonidal cyst Current Outpatient Medications Medication Sig - omeprazole (PRILOSEC) 40 mg capsule Take 40 mg by mouth once daily. - XULANE 150-35 mcg/24 hr patch APPLY 1 PATCH TOPICALLY ONCE A WEEK - ergocalciferol 50,000 unit capsule (VITAMIN D2, DRISDOL) Take 1 capsule by mouth one time a week. (Patient not taking: Reported on 03/15/2021 ) No current facility-administered medications for this visit. ALLERGIES: Patient has no known allergies. PERSONAL HISTORY: Social History Tobacco Use - Smoking status: Never Smoker - Smokeless tobacco: Never Used Substance Use Topics - Alcohol use: Yes Alcohol/week: 0.0 standard drinks Comment: occasional glass of wine - Drug use: No FAMILY HISTORY: FAMILY HISTORY Problem Relation Age of Onset - Thyroid Mother - Heart Paternal Grandmother - COPD Paternal Grandmother - Heart Paternal Grandfather REVIEW OF SYMPTOMS: The review of systems data was entered by the nurse and reviewed by la Nursing Notes: Narcisa Weeks RN 03/15/2021 9:06 AM Signed REVIEW OF SYSTEMS: General: The patient denies fatigue, denies weight loss, denies weight gain, denies feeling hot, and denies feelings of cold. Eyes: The patient denies glaucoma, denies eye injury/surgery, wears glasses or contacts. Ear/Nose/Throat: The patient denies allergies, denies hayfever, denies ear infections, and denies bloody noses. Cardiovascular: The patient NOTES chest pain, denies heart disease, denies high blood pressure,denies cardiac stent, denies prior heart attack, denies irregular heart beat, denies high cholesterol, denies poor circulation, denies heart failure, other cardiac issues, denies claudication, denies cold feet, denies peripheral arterial stent. Respiratory: The patient denies tuberculosis, denies pneumonia, denies frequent cough, denies pulmonary embolism, denies shortness of breath, and denies coughing up blood. Gastrointestinal: The patient denies difficulty swallowing, denies acid reflux, denies ulcers, denies vomiting, denies jaundice/hepatitis, denies gallbladder problems, denies black or tarry stools, denies hemorrhoids, denies bleeding from rectum, denies diverticulitis, denies constipation, NOTES diarrhea, denies loss of stool control, and denies hernias. Kidney/Bladder: The patient denies kidney stones, denies urine infections, and denies bloody urine. Skin: The patient denies a history of skin cancer, denies bleeding/changing moles, and denies a history of skin rash. Neurologic: The patient denies a history of epilepsy/convulsions, denies headaches, denies head/spinal injuries, and denies stroke/TIA. Psychiatric: The patient denies psychiatric medications, denies depression, and denies voices, denies substance abuse. Endocrine: The patient denies thyroid disorders, denies diabetes, and denies hormonal problems. Hematologic: The patient denies a history of bruising, denies bleeding, and denies anemia, denies blood clots. Infections: The patient denies a history of measles and mumps, denies rheumatic fever, and denies sexually transmitted diseases. Musculoskeletal: The patient denies back pain/injury, denies back problems, denies sciatica, denies knee/foot trouble, denies arthritis, or denies gout. When was patient's last Mammogram screening? NEVER Last Pelv (more content not included)...[facility]07-13-2021 NoteHNO ID: [id number] Author: Narcisa Weeks RN Service: ? Author Type: Registered Nurse Type: Progress Notes Filed: 03/15/2021 9:30 AM Note Text: New patient. Visit for EGD consult. Patient is a referral from Dr. Jones. Patient has been having GI upset, diarrhea, extreme nausea without vomiting and stomach cramping X 1 year. PCP placed patient on omeprazole without much relief. Episodes happen after eating. Patient report episodes has worsened and more frequent, she is no longer able to eat things that didn't bother her 1 month ago. Narcisa Weeks [facility]NM[facility]06-17-2021 NoteHNO ID: [id number] Author: Alexander Interiano MD Service: ? Author Type: Physician Type: Progress Notes Filed: 02/17/2021 5:05 PM Note Text: Patient presents with: left shoulder pain: x several weeks neck and chest hurt some also HPI: Left shoulder pain: Duration: 2 weeks, worse the last week Location: Left shoulder (anterior, posterior, upper chest), Character: Dull, intermittent for hours, constant the last 2 days (no pain currently) Radiation: Left neck Aggravating: Not bothered by head or arm movements, no brought on by activity Relieving: Tried stretching Pain relievers: none Associated: Occasional palpitations (chronic events and unchanged in frequency or character), recent nausea and diarrhea evaluation (triggered by spicy food), elevated triglycerides (improved on recent recheck, PGF ME <50yo. Pertinent negatives: Denies chest pain, shortness of breath, cough, fever, edema Elevated triglycerides. Had COVID-19 in July. Has not had vaccine. PAST MEDICAL HISTORY Diagnosis Date - Pilonidal cyst MEDICATIONS: omeprazole (PRILOSEC) 40 mg capsule Take 40 mg by mouth once daily. ergocalciferol 50,000 unit capsule (VITAMIN D2, DRISDOL) Take 1 capsule by mouth one time a week. XULANE 150-35 mcg/24 hr patch APPLY 1 PATCH TOPICALLY ONCE A WEEK ALLERGIES: ALLERGIES No Known Allergies VITALS: BP 128/80 Pulse 79 Temp 37.3 ?C (99.1 ?F) (Tympanic) Resp 16 Wt 84.8 kg (187 lb) LMP 09/21/2016 SpO2 98% BMI 33.13 kg/m? PHYSICAL EXAM: GEN: pleasant, no acute distress, alert HEENT: PERRL, EOMI, MMM NECK: supple, no lymphadenopathy, no thyromegaly, normal ROM without inducing symptoms HEART: regular rate, regular rhythm, no murmurs LUNGS: clear to auscultation, no wheezes or crackles, no increased WOB ABD: soft, non-distended, no masses palpated, non-tender EXT: no clubbing, no cyanosis, no edema, normal symmetric monofilament sensation in fingers SHOULDER: left. No deformity or sweling. Palpation of clavicle non-tender, AC joint non-tender, glenohumeral joint non-tender. ROM: normal. Impingement test: Negative. Supraspinatus (empty can test): Negative. Cross arm test: Negative. NEURO: Alert and oriented to person, place, and time. Normal strength. Normal gait. No tremor. ASSESSMENT/PLAN: 1. Acute pain of left shoulder - ICD9: 719.41, ICD10: M25.512 (primary diagnosis) 2. Left-sided chest pain - ICD9: 786.50, ICD10: R07.9 Low risk for coronary artery disease. Exam is normal. She is on a hormonal contraceptive patch. Rule out PE though pain is more focused in the shoulder than the chest. - D-DIMER stat. Patient agrees to go to the ER for further evaluation if abnormal. Her PCP's office told her the next available appointment was the end of March. She can have follow up in [facility] if unable to get in with another attempt. Patient will proceed to the ER with worsening pain, shortness of breath, palpitations, or exertion induced symptoms. Alexander Interiano, [facility] HospitalEvaluation noteNo assessment information availableWMercy Health [facility] Work Phone: Evaluation note* Diagnosis Onset Date Resolution Status Encounter for routine gynecological examination noneactive [facility] Work Phone: Evaluation note* Diagnosis Onset Date Resolution Status Admit Date Mastalgia acute February 23 8:41am Encounter for routine gynecological examination noneactive February 022024 8:41am [facility] Work Phone: Progress note Author Shirley Gregg [facility] Note Date/Time February 23, 2025 9:37 am [facility] [address] [place] [address], [address] [place] [address] OFFICE VISIT Date of Service: 02/23/25 MR#: [id number] Acct: [id number] Name: LANA TRAN Rep #: [id number] : 1990 Provider: Dr. 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 Is patient in pain?: Yes (right breast pain on and off) Allergies No Known Allergies Allergy (Verified 02/23/25 08:45) Medications ?Medication ?Instructions ?Recorded ?Confirmed ?Type cholecalciferol (vitamin D3) 10 10 mcg PO DAILY 02/23/25 History mcg (400 unit) capsule Xulane 150 mcg-35 mcg/24 hr 1 patch transdermal Q7D #3 ea 02/23/25 02/23/25 Rx transdermal patch (norelgestromin-ethin.estradiol) ferrous sulfate 325 mg (65 mg 325 mg PO QDAY 02/23/25 02/23/25 History iron) tablet Is last menstrual period known: Yes Last Menstrual Period: 02/02/25 Post menopausal: No Patient : No : No PFSH Medical History GERD (gastroesophageal reflux disease) Nodular goiter Surgical History S/P cholecystectomy Pilonidal cyst Family History Grandfather Myocardial infarction Diabetes Mother Thyroid disorder Grandfather Esophageal cancer Grandmother Arthritis Lung cancer Social History Smoking Status: Never smoker alcohol intake: current details: social substance use type: does not use caffeine: Yes what type of physical activity do you participate in: walking frequency: 1-2 times per week duration: 45-60 minutes/day seatbelt use: always do you feel safe at home: Yes additional social history: 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 CO RIGHT INNER BRESAT pain intermittently for the last few months no lumps may be chest wall, unsure. no family history no lumps or skin changes no discharge. Last PAP: 11/29/2023 - normal History of abnormal PAP: Last mammogram: not due History of abnormal mammogram: Colon cancer screening: not due Other preventative health care screenings: PCP [facility] Female Reproductive History Last Menstrual Period: 02/02/25 Cycle Length: 21-35 Bleeding Duration: 5 Questions: metorrhagia: No, sexually active: Yes, dyspareunia: No and PCB: No Menopausal Symptoms: No hot flashes, No night sweats, No weight change, No mood changes, No difficulty concentrating, No sleep problems and No change in libido ROS Const Constitutional: Reports as per HPI; Denies fatigue, increased appetite, poor appetite, night sweats, weight gain or weight loss Cardio Card: Denies chest pain Resp Resp: Denies cough or dyspnea GI GI: Reports as per HPI; Denies abdominal pain, bloating, constipation, nausea or vomiting : Reports as per HPI, vaginal discharge and other; Denies difficulty voiding, dysuria, hematuria, hot flashes, nipple discharge, pelvic pain, prolapse symptoms, urinary frequency, urinary incontinence, urinaryurgency, vaginal dryness, vaginal odor or vaginal pruritus Skin Skin/Breast: Reports breast pain; Denies changing lesions, breast mass, breast skin changes or nipple discharge Psych Psych: Denies anxiety, change in libido, depression or difficulty concentrating Exam Const General: cooperative, healthy appearing, comfortable, no acute distress, well developed and well groomed [facility] Head: normal to inspection and normocephalic Ears: hearing grossly normal bilaterally and external ears normal Nose: external nose normal Face and sinus: normal facial exam Neck Neck: normal visual inspection, full ROM and no lymphadenopathy Thyroid: thyroid normal Chest Chest palpation & inspection: normal inspection of the chest Breast inspection: normal inspection of the breasts and normal inspection of theaxillae Breast palpation: normal palpation of the breasts, normal palpation of the axillae and no axillary lymphadenopathy Resp Effort & Inspection: normal respiratory effort GI Inspection: normal to inspection and non-distended Palpation: soft, no hepatosplenomegaly and no guarding General: bladder normal to palpation External Female Exam: normal external appearance, normal appearance of the urethra and no lesions Urethra: normal appearance of the urethra and normal palpation Speculum Exam - Vagina: normal appearance of the vagina and normal vaginal discharge Speculum Exam - Cervix: normal appearance of the cervix, no cervical discharge, no lesions and nontender Bimanual Exam- Vagina & Uterus: normal bimanual exam, uterine size normal, bladder normal to palpation, No tender, uterine mobility normal, consistency normal, non-tender and no cervical motion tenderness Bimanual Exam- Adnexa, other: normal adnexae, no masses and non-tender Skin General: no rashes or lesions noted Neuro General: patient alert, moves all extremities and no focal motor deficits Extrem General: normal to inspection and no pedal edema Psych Appearance: grossly normal Mental Status: mental status grossly normal Affect: normal affect Speech and Movement: speech and movement normal Attitude: cooperative Coding Level of Care Code Off vis,est,prev 18-39yrs Diagnoses Encounter for gynecological examination with abnormal finding Z01.411 Gynecological examination findings: abnormal findings PRESENT Mastalgia N64.4 Assessment and Plan Assessment and Plan (1) Encounter for routine gynecological examination: Qualifiers: Gynecological examination findings: abnormal findings PRESENT QualifiedCode(s): Z01.411 - Encounter for gynecological examination (general) (routine) with abnormal findings (2) Mastalgia: Status: Acute Comment: supportive care reviewed Medications: Refilled Xulane 150-35 mcg/24 hr (norelgestromin-ethin.estradiol) apply once weekly for 3 weeks of a 4-week cycle 1 patch transdermal Q7D 3 [id number] NS Plan Cervical cancer screening: pap hpv up to date Breast cancer screening: clinical other health maintenance examination reviewed and orders placed if needed. Encouraged maintenance of a healthy weight and active lifestyle and handout given. Annual exam handout including recommendations for good health guidelines, Calcium/vitamin D recommendations, and basic screening information given. Problem list up to date, see problem list details for any additional plan information. Follow up in one year for annual health maintenance exam or sooner if needed. 02/23/25 0937 <Electronically signed by Shirley owens MD> Date _ Shirley Gregg MD Cosigner Signature: Date (if applicable) CC: ~ [facility] Work Phone: Reason for referral (narrative)No reason for referral information availableBlAdventist Health [facility] Work Phone: Summary Purpose Family History No Family History Records Found Relationship Condition Age at Onset Recorded Date/T kecia grandfather Myocardial infarction Unknown Diabetes mellitus Unknown mother Disorder of thyroid Unknown grandfather Malignant neoplasm of esophagus Unknown grandmother Arthritis Unknown Malignant neoplasm of lung Unknown Advance Directives No Advanced Directives Records Found Advance Directive Response Recorded Date/ Time Living Will No February 17, 2021 5:58pm Power of Vocational Rehabilitation Technician No February 17 5:58pm Advance Directive Response Recorded Date/ Time Living Will No February 17, 2021 6:58pm Power of Vocational Rehabilitation Technician No February 17 6:58pm Chief Complaint and Reason for Visit Chief Complaint Admit Date 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) February 23, 2025 8:41 am THYROMEGALY, HX GOITER February 26, 2025 1 2:56pm Reason for Visit Admit Date Mastalgia February 23, 2025 8:41 am Encounter for routine gynecological exam ination February 23, 2025 8:41am Chief Complaint 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 DATE CREATED AUTHOR AUTHOR'S ORGANIZ ATION 03/04/2025 [facility] Goals (unrecognized section and content) Goals may be documented in a n alternate sectionGoals may be documented in an alternate sectionGoals may be documented in an alternate sectionGoals may be documented in an alternate sectionGoals may be documented in an alternate sectionGoals may be documented in an alternate section Care Teams (unrecognized sec tion and content) Team Status: Active Member Role Status Dates Dr. Danial Dow MD Family Provider Active Denia Ramirez NP-Miko Primary Care Provider Active Team Status: Inactive Member Role Status Dates LAURENT Vyas Primary Care Provider, Attending Kathy desir Active Team Status: Inactive Member Role Status Dates Dr. Monica Jones DO Referring Provider Active Dr. Shirley Gregg MD Attending Provider Active LAURENT Vyas Primary Care Provider Active Team Status: Inactive Member Role Status Dates LAURENT Vyas Primary Care Provider Active Dr. Shirley Gregg MD Attending Provider Active Team Status: Inactive Member Role Status Dates LAURENT Vyas Primary Care Provider Active Start: February 23, 2025 End: February 23, 2025 LAURENT Vyas Referring Provider Active St art: February 23, 2025 End: February 23, 2025 Dr. Shirley Gregg MD Attending Provider Active Start: February 23, 2025 End: February 23, 2025 Team Status: Active Member Role Status Dates Denia Ramirez , CELL LINER-C Primary Care Provider Active Start: February 23, 2025 Misty Murphy CNM Attending Provider Active S tart: February 23, 2025 Misty Murphy CNM Referring Provider Active S tart: February 23, 2025 Team Status: Active Member Role Status Dates Deniabetsy Ramirez , CELL LINER-C Primary Care Provider Active Team Status: Inactive Member Role Status Dates Deniabetsy Ramirez , CELL LINER-C Primary Care Provider Active Start: February 23, 2025 End: February 23, 2025 Misty Murphy CNM Attending Provider Active S tart: February 23, 2025 End: February 23, 2025 Misty Murphy CNM Referring Provider Active S tart: February 23, 2025 End: February 23, 2025 Team Status: Active Member Role/Relationship Status Dates Denia James , CELL LINER-C Primary Care Provider Active Team Status: Inactive Member Role/Relationship Status Dates Denia James , CELL LINER-C Primary Care Provider Active Start: February 23, 2025 End: February 23, 2025 Deniabetsy Ramirez , CELL LINER-C Referring Provider Active St art: February 23, 2025 End: February 23, 2025 Dr. Shirley Gregg MD Attending Provider Active Start: February 23, 2025 End: February 23, 2025 Team Status: Inactive Member Role/Relationship Status Dates Deniabetsy Ramirez , CELL LINER-C Primary Care Provider Active Start: February 23, 2025 End: February 23, 2025 Misty Murphy CNM Attending Provider Active S tart: February 23, 2025 End: February 23, 2025 Misty Murphy CNM Referring Provider Active S tart: February 23, 2025 End: February 23, 2025 Team Status: Inactive Member Role/Relationship Status Dates Deniabetsy aRmirez , CELL LINER-C Primary Care Provider Active Start: February 26, 2025 End: February 26, 2025 Dr. Shirley Gregg MD Attending Provider Active Start: February 26, 2025 End: February 26, 2025 Dr. Shirley Gregg MD Referring Provider Active Start: February 26, 2025 End: February 26, 2025 FOR RECORDS PERTAINING TO PATIENTS WHO ARE OR HAVE BEEN ENROLLED IN A CHEMICAL DEPENDENCY/SUBSTANCEABUSE PROGRAM, SOME INFORMATION MAY BE OMITTED. This clinical summary was aggregated from multiple sources. Caution should be exercised in using it in the provision of clinical care. This summary normalizes information from multiple sources, and as a consequence, information in this document may materially change the coding, format and clinical context of patient data. In addition, data may be omitted in some cases. CLINICAL DECISIONS SHOULD BE BASED ON THE PRIMARY CLINICAL RECORDS. [facility], [facility]. provides no warranty or guarantee of the accuracy or completeness of information in this document.
== END | disposition home or self-care (01) ==
LOC: BFHLAB 11:27
PROVIDERS: PCP Nurse Practitioner Family; Visit Provider Family Medicine
DX: E03.9 Hypothyroidism, unspecified (principal); E55.9 Vitamin D deficiency, unspecified; E53.8 Deficiency of other specified B group vitamins; D50.9 Iron deficiency anemia, unspecified; E04.1 Nontoxic single thyroid nodule; Z13.220 Encounter for screening for lipoid disorders
CPT/HCPCS: 36415; 80053; 80061; 82306; 82607; 82728; 83540; 84439; 84443; 84481; 85025; 86376; 86800